=== PATIENT | female | born 1935 | race Caucasian/White ===

== ENCOUNTER 2018-03-02 13:18 | Inpatient (IN) ==
--- NOTE | 2018-03-01 21:25 | Discharge Summary ---
<Kenny Sousa - Last Filed: 03/02/18 13:58> Orders not resulted at time of discharge: Pending orders 03/02/18 00:01 XR hip complete RT [XR] Routine H/H [Hemoglobin and Hematocrit] [HEME] Routine Date of Encounter: 03/02/18 - Discharge Diagnosis (1) Obesity (BMI 30.0-34.9) Priority: Secondary Status: Chronic (2) Infection of prosthetic total hip joint Priority: Primary Status: Acute Qualifiers: Encounter type: subsequent encounter Qualified Code(s): T84.59XD - Infection and inflammatory reaction due to other internal joint prosthesis, subsequent encounter; Z96.649 - Presence of unspecified artificial hip joint (3) Nonhealing surgical wound Priority: Primary Status: Acute Qualifiers: Encounter type: subsequent encounter Qualified Code(s): T81.89XD - Other complications of procedures, not elsewhere classified, subsequent encounter (4) Status post revision of total hip replacement Priority: Primary Status: Acute (5) DMII (diabetes mellitus, type 2) Priority: Secondary Status: Chronic Qualifiers: Diabetes mellitus care home insulin use: unspecified terminal clerk insulin use status Diabetes mellitus complication status: with unspecified complications Qualified Code(s): E11.8 - Type 2 diabetes mellitus with unspecified complications (6) HTN (hypertension) Priority: Secondary Status: Chronic Qualifiers: Hypertension type: essential hypertension Qualified Code(s): I10 - Essential (primary) hypertension (7) History of CVA (cerebrovascular accident) Priority: Secondary Status: Chronic - Hospital Course Hospital course: Ms. Cartagena is a 82 year old female - Time Spent with Patient Total time spent providing and/or coordinating discharge services: - Discharge Medications Prescriptions: Vancomycin [Vancocin] 1,000 mg IV Q12HR 42 Days #84 vial Home Medications: Bran/Gum/Fib/Shaneka/Psyl/Kelp/Pec [Fiber 6 Tablet] 1,000 mg PO DAILY 09/15/17 [ History] Calcium Carbonate/Vitamin D3 [Calcium 600 + Vit D Tablet] 1 tab PO BID 09/15/17 [History] Clopidogrel [Plavix] 75 mg PO DAILY 09/15/17 [History] Ferrous Sulfate [Iron] 325 mg PO SUTH 09/15/17 [History] Lisinopril [Zestril] 20 mg PO BID 09/15/17 [History] Multivitamin [One Daily Multivitamin] 1 tab PO DAILY 09/15/17 [History] Rosuvastatin [Crestor] 20 mg PO HS 09/15/17 [History] metFORMIN [Glucophage] 500 mg PO BIDWM 09/15/17 [History] Aspirin Enteric Coated [Aspirin EC] 325 mg PO BID #20 tablet. 03/01/18 [Rx] OxyCODONE Immed Rel [Roxicodone 5 MG] 5 mg PO Q6HR PRN 7 Days #28 tablet [Rx] Acetaminophen [Tylenol] 650 mg PO Q6HR PRN 03/02/18 [History] Naproxen Sodium [Aleve] 220 mg PO BID PRN 03/02/18 [History] Vancomycin [Vancocin] 1,000 mg IV Q12HR 42 Days #84 vial 03/05/18 [Rx] Allergies/Adverse Reactions: 3 Allergy/AdvReac Type Severity Reaction Status Date / Time No Known Allergies Allergy Verified 03/02/18 14:03 Primary care physician: Ruiz Weiss DO Labs on day of discharge: Labs from last 24 hours 03/02/18 13:36 POC Glucose 104 H - Patient Status Disposition: Transfer Inpatient Rehab Fac Condition: Good - Discharge Instructions Instructions: Total Hip Replacement (DC) Follow Up With: Ruiz Weiss DO [Primary Care Provider] - <Kiesha Bolton L - Last Filed: 03/06/18 10:31> Date of Encounter: 03/06/18 Time of Encounter: 15:53 - Discharge Diagnosis (1) Status post revision of total hip replacement Priority: Primary Status: Acute (2) Infection of prosthetic total hip joint Priority: Primary Status: Acute Qualifiers: Encounter type: subsequent encounter Qualified Code(s): T84.59XD - Infection and inflammatory reaction due to other internal joint prosthesis, subsequent encounter; Z96.649 - Presence of unspecified artificial hip joint (3) DMII (diabetes mellitus, type 2) Priority: Secondary Status: Chronic Qualifiers: Diabetes mellitus care home insulin use: unspecified terminal clerk insulin use status Diabetes mellitus complication status: with unspecified complications Qualified Code(s): E11.8 - Type 2 diabetes mellitus with unspecified complications (4) HTN (hypertension) Priority: Secondary Status: Chronic Qualifiers: Hypertension type: essential hypertension Qualified Code(s): I10 - Essential (primary) hypertension (5) History of CVA (cerebrovascular accident) Priority: Secondary Status: Chronic (6) Obesity Priority: Secondary Status: Chronic Qualifiers: Obesity type: due to excess calories Obesity classification: adult class 1 (BMI 30 - 34.9) Serious obesity comorbidity presence: without serious comorbidity Body mass index: BMI 30.0-30.9 Qualified Code(s): E66.09 - Other obesity due to excess calories; Z68.30 - Body mass index (BMI) 30.0-30.9, adult (7) Acute blood loss anemia Priority: Primary Status: Acute Comments: Patient transfused 3 units of blood while in hospital (8) Staph aureus infection Priority: Primary Status: Acute Comments: Cultures: +2 strain staph aureus, pansensitive. Patient has failed mulltiple oral antibiotics, plan to continue IV Vancomycin 4-6 weeks. - Hospital Course Hospital course: Ms. Cartagena is a 82 year old female, status post Left Hip Revision THR, with I& D. 03/02 Culture from 01/25 - Staph Aureus - pansensitive. 03/02 Cultures: Sensitivity: Pansensitive (patient has failed multiple oral antibiotics) ORGANISM 1: Staphylococcus aureus Scant (Growth of 1-5 colonies) ORGANISM 2: Staph Aureus 1+ (Growth in 1st quadrant only) Will 4-6 weeks of required long-term antibiotics* PICC line placed 03/05. Knee immobizer removed on 03/04. Drain placed on 03/02 and pulled on 03/05 Patient had acute blood loss anemia, received a total of 3 units of blood. Patient seen at bedside, without complaints. A&O x 3 Afebrile, vital signs stable. Vital Signs Temp Pulse Resp BP Pulse Ox 03/06/18 07:30 98.3 F 94 18 134/74 98 03/06/18 03:35 98 F 94 16 132/69 99 03/05/18 20:41 98.3 F 99 16 120/67 99 03/05/18 19:36 98.4 F 103 16 119/66 98 03/05/18 17:00 99.0 F 97 16 114/74 99 03/05/18 16:31 98.4 F 96 15 118/73 98 03/05/18 16:16 98.7 F 68 16 127/76 96 03/05/18 11:10 98.0 F 98 16 114/66 99 Intake and Output 03/05/18 03/06/18 03/06/18 23:59 07:59 15:59 Intake Total 535 / 535 360 / 360 Output Total 400 / 400 1900 / 1900 Balance 135 / 135 -1900 / -1900 360 / 360 Intake: Oral 240 / 240 360 / 360 Blood Product 295 / 295 Rbcs Leuko Poor As-3 Ph Unit 295 / 295 [id number] Output: Urine 400 / 400 1900 / 1900 Other: Meal Dinner Breakfast Percent of Meal Consumed 50% 95% Weight 79.01 kg Blood Glucose* 110 135 Patient Weight 03/06/18 23:59 Weight 79.01 kg Labs reviewed. H/H - stable, asymptomatic Short CBC 03/06/18 Range/Units 03:15 Hgb 9.9 L D (11.5-15.4) g/dL Hct 31.0 L (35.3-44.9) % Pain control: adequate Participating in PT. All questions and concerns addressed. Educated on use of incentive spirometer. Encouraged ambulation and proper hydration. Patient educated on post-operative restrictions and post-operative care. Assessment and plan: Continue with postoperative care Discharge plan: ECF today IV Antibiotic: Vancomycin 1 gram q 12 with pharmacy to dose x 4-6 weeks. Daily PICC line care needed. Time spent discussing smoking cessation with patient: 3 to 10 minutes - Time Spent with Patient Total time spent providing and/or coordinating discharge services: Date of admission: 03/04/18 Primary care physician: Ruiz Weiss DO Discharging clinician: Kiesha Bolton Anticipated date of discharge: 03/06/18 - Patient Status Functional capacity at discharge: uses cane/walker Overall status at discharge: patient is progressing back to baseline - Diet and Activity Activity: as per physical therapy
--- NOTE | 2018-03-01 21:28 | Physician Discharge Referral ---
<LuisDalila hughesKiesha L - Last Filed: 03/01/18 21:27> Home Health/Hosp Referral Info Transfer to: Home Health Provider in Charge Post Discharge: PCP - Diagnosis (1) Status post revision of total hip replacement Priority: Primary Status: Acute (2) Infection of prosthetic total hip joint Priority: Primary Status: Acute (3) DMII (diabetes mellitus, type 2) Status: Chronic (4) HTN (hypertension) Status: Chronic (5) History of CVA (cerebrovascular accident) Status: Chronic (6) Obesity Status: Chronic - Respiratory Orders None Smoking Cessation: Smoking cessation has been advised. For more information, call the [place] Tobacco Quit Line at 8-259-TVID-NOW. - Diet/Nutrition Diet/Nutrition Orders: Regular - Activity Activity Orders: Up ad gennaro, Ambulate, Walker - Services Needed Following services are medically necessary services: Nursing, Home Health Aide, Physical Therapy, Occupational Therapy Other Treatments: Opsite dressing, leave intact until first post-operative visit. If dressing becomes >50% saturated, contact office, remove dressing and place appropriate dressing in its place. Do not allow for dressing to get wet. Zipline/Sergio in place, plan to remove at post-operative day #14-16. Total Joint Precautions x 6 weeks Apply cold therapy wrap 3-6x/day for 20 minutes at a time. Encourage ambulation throughout the day Use Incentive spirometer 10x/hour. Elevate affected extremity above heart as tolerated. Brace: Wear hip abductor brace at night x 6 weeks.~ - Transfer Medications Prescriptions: OxyCODONE Immed Rel [Roxicodone 5 MG] 5 mg PO Q6HR PRN 7 Days #28 tablet PRN Reason: Severe Pain Aspirin Enteric Coated [Aspirin EC] 325 mg PO BID #20 tablet.dr Home Medications: Bran/Gum/Fib/Shaneka/Psyl/Kelp/Pec [Fiber 6 Tablet] 1,000 mg PO DAILY 09/15/17 [ History] Calcium Carbonate/Vitamin D3 [Calcium 600 + Vit D Tablet] 1 tab PO BID 09/15/17 [History] Clopidogrel [Plavix] 75 mg PO DAILY 09/15/17 [History] Ferrous Sulfate [Iron] 325 mg PO SUTH 09/15/17 [History] Lisinopril [Zestril] 20 mg PO BID 09/15/17 [History] Multivitamin [One Daily Multivitamin] 1 tab PO DAILY 09/15/17 [History] Rosuvastatin [Crestor] 20 mg PO HS 09/15/17 [History] metFORMIN [Glucophage] 500 mg PO BIDWM 09/15/17 [History] Aspirin Enteric Coated [Aspirin EC] 325 mg PO BID #20 tablet. 03/01/18 [Rx] OxyCODONE Immed Rel [Roxicodone 5 MG] 5 mg PO Q6HR PRN 7 Days #28 tablet [Rx] Allergies/Adverse Reactions: 3 Allergy/AdvReac Type Severity Reaction Status Date / Time No Known Allergies Allergy Verified 09/15/17 12:28 Certification: Further, I certify that my clinical findings support that this patient is homebound (i.e. absences from home require considerable and taxing effort and are for medical reasons or christianity services or infrequently or short duration when for other reasons) because: Homebound Reason: Post-surgery restriction and or conditions limit ability to leave home Attestation: My signature below is to certify that this patient is under my care and that I, or nurse practitioner, or a physician's assistant men's lacrosse coach working with me, has a face-to -face encounter with this patient. <Kenny Sousa - Last Filed: 03/02/18 13:58> - Respiratory Orders Smoking Cessation: Smoking cessation has been advised. For more information, call the [place] Tobacco Quit Line at 4-472-NQKB-NOW. Certification: Further, I certify that my clinical findings support that this patient is homebound (i.e. absences from home require considerable and taxing effort and are for medical reasons or christianity services or infrequently or short duration when for other reasons) because: Attestation: My signature below is to certify that this patient is under my care and that I, or nurse practitioner, or a physician's assistant men's lacrosse coach working with me, has a face-to -face encounter with this patient.
--- NOTE | 2018-03-02 13:42 | Anesthesia Evaluation PreOp ---
Date of Encounter: 03/02/18 Time of Encounter: 13:40 - Past History Planned Operation: R total hip arthroplasty revision Cardiac History: HTN, Other (stress negatibe for ischemia EF 65%) Pulmonary History: Denies Any Significant HX AUTOMOTIVE SHOP FOREMAN History: CVA (mild generalized weakness), Other (carotid stenosis: tomas proximal ICA 40-59% stenosis) Other Medical History: Diabetes Type II Anesthesia History: No Prior Anesthetic Complications, Past Anesthesia (R THR, partial hysterectomy) Alcohol Use: none Drug use: none Medications and Allergies Bran/Gum/Fib/Shaneka/Psyl/Kelp/Pec [Fiber 6 Tablet] 1,000 mg PO DAILY 09/15/17 [ History] Calcium Carbonate/Vitamin D3 [Calcium 600 + Vit D Tablet] 1 tab PO BID 09/15/17 [History] Clopidogrel [Plavix] 75 mg PO DAILY 09/15/17 [History] Ferrous Sulfate [Iron] 325 mg PO SUTH 09/15/17 [History] Lisinopril [Zestril] 20 mg PO BID 09/15/17 [History] Multivitamin [One Daily Multivitamin] 1 tab PO DAILY 09/15/17 [History] Rosuvastatin [Crestor] 20 mg PO HS 09/15/17 [History] metFORMIN [Glucophage] 500 mg PO BIDWM 09/15/17 [History] Aspirin Enteric Coated [Aspirin EC] 325 mg PO BID #20 tablet. 03/01/18 [Rx] OxyCODONE Immed Rel [Roxicodone 5 MG] 5 mg PO Q6HR PRN 7 Days #28 tablet [Rx] 3 Allergy/AdvReac Type Severity Reaction Status Date / Time No Known Allergies Allergy Verified 09/15/17 12:28 - Meds/Allergy Pre-op Review Medications Reviewed: Yes Allergies Reviewed: Yes Beta Blockers on Current Med List: No Anesthesia Results - Labs Laboratory Tests 02/17/18 02/26/18 02/26/18 13:40 09:45 09:45 WBC 7.3 Hgb 12.6 Hct 40.3 Plt Count 349 PT 11.5 INR 1.0 APTT 35.3 Sodium Potassium Chloride Carbon Dioxide BUN Creatinine POC Creatinine 0.80 02/26/18 09:45 WBC Hgb Hct Plt Count PT INR APTT Sodium 138 Potassium 4.1 Chloride 105 Carbon Dioxide 25 BUN 17 Creatinine 0.78 POC Creatinine - Imaging EKG: report reviewed (SINUS RHYTHM WITH MARKED SINUS ARRHYTHMIA INFERIOR MYOCARDIAL INFARCTION, PROBABLY OLD Electronically Signed On 09-14-2017 8:25:53 EDT by Prasanna Jama) Anesthesia Exam O2 Sat Height 1.6 m Height 1.6 m Height 1.6 m Weight 77.564 kg Weight 77.564 kg Weight 77.564 kg O2 Sat by Pulse Oximetry 96 Vital Signs Temp Pulse Resp BP Pulse Ox 98.0 F 108 18 144/85 96 03/02/18 13:38 03/02/18 13:38 03/02/18 13:38 03/02/18 13:38 03/02/18 13:38 Blood glucose: 104 Weight: 77kg NPO (# of Hours): >8 - HEENT Pupil (Motor): Pupils equal, EOMI Mallampati: II Teeth: Edentulous Oral Opening: Greater than 3 - AUTOMOTIVE SHOP FOREMAN LOC: Oriented AUTOMOTIVE SHOP [employer]EMAN Motor: Normal RUE, Normal LUE, Normal RLE, Normal LLE, Normal Face AUTOMOTIVE SHOP FOREMAN Sensory: Deficit: RUE, LUE, RLE, LLE, Face - Cardiac Rhythm: Regular - Pulmonary Breath Sounds: bilateral Clear Respiratory Effort: Symmetrical Anesthesia Assess/Plan ASA Score: 3 Modified Marion Scale for Level of Consciousness: Cooperative, oriented, and tranquil Anesthetic Plan: General, Regional (pt declines spinal) Monitoring Plan: Standard Monitors Recovery Plan: PACU
[2018-03-02] MEDS: Ringers Solution, Lactated 1,000 ML IVC SCH ×4 (13:53→21:23)
[2018-03-02] MEDS ORDERED: Acetaminophen IV 1,000 MG/100 ML INFUS..BTL ONE (13:55)
--- NOTE | 2018-03-02 13:58 | History & Physical Report ---
Date of Encounter: 03/02/18 Time of Encounter: 13:58 24 Hour HP Update - Instructions Instructions: If the History and Physical is less than 30 days old and was completed prior to A.M. admission and or procedure and has NOT been updated on calendar day of procedure please complete this update prior to performing procedure. - Update Patient reports changes in Medical Condition: No Changes in examination, assessment, or condition: No Changes in Medication: No Preop tests/diagnostics Reviewed: Yes Surgery Remains Indicated: Yes Consent for Planned Operative Procedure(s) Verified: Yes - Pre-Operative Checklist Preoperative Checklist Indicated: No Prophylactic Antibiotic Ordered: Yes Is VTE Prophylaxis Indicated?: Yes
[2018-03-02] MEDS ORDERED: *HR* Midazolam HCl 2 MG/2 ML VIAL ONE (14:32)
[2018-03-02] MEDS ORDERED: *HR* FentaNYL (PF) 100 MCG/2 ML VIAL ONE ×2 (14:32→16:29)
[2018-03-02] MEDS ORDERED: Lidocaine -MPF 2% 2 ML VIAL ONE (14:32)
[2018-03-02] MEDS ORDERED: *HR* Succinylcholine 200 MG/10 ML VIAL IVP ONE (14:32)
[2018-03-02] MEDS ORDERED: *HR* Propofol 200 MG/20 ML VIAL IVP ONE (14:32)
[2018-03-02] MEDS ORDERED: Ethanol\\Acetic Acid\\Na Ace\\Ben 1,000 ML IRRIG.SOLN IR ONE ×2 (14:37→15:18)
[2018-03-02] MEDS ORDERED: *HR* Promethazine 25 MG/ML VIAL IVP PRN (15:28)
[2018-03-02] MEDS ORDERED: Dexamethasone 4 MG/ML VIAL ONE (16:22)
[2018-03-02] MEDS ORDERED: Ondansetron 4 MG/2 ML VIAL ONE (16:22)
[2018-03-02] MEDS ORDERED: *HR* PHENYLEPHRINE 1,000 MCG/10 ML SYRINGE IVP ONE ×2 (16:22→18:00)
[2018-03-02] MEDS ORDERED: Lidocaine -MPF 4% 5 ML AMPUL ONE (17:13)
--- NOTE | 2018-03-02 17:14 | Orthopedic Operative Note ---
Date of procedure: 03/02/18 Pre-op diagnosis: Infected left total hip Post-op diagnosis: same Procedure: Procedure: Right Revision femur of Total Hip Replacment irrigation debridement Estimated blood loss: 800 cc Hardware: Metal and polyethylene replacement. Rocco, sabianism modular, 14 x 195 mm stem, 25+0 cone body, 36+5 metal head. JAIDEN drain Procedural Notes: Infected right total hip. Operative procedure: The patient was brought to the operating room and placed on the operating room table. After general anesthesia was administered the patient was placed in the lateral decubitus position with the operative leg up. All pressure points were padded appropriately and the head was stabilized in the neutral position. The operative extremity was prepped and draped in the sterile surgical fashion patient received IV antibiotic prior to skin incision. Patient had a previous anterior approach, had an open draining sinus at the distal portion of this incision. A standard posterior approach is made to the operative hip and elliptical incision was made around the draining sinus area which ended at the end of the incision. The incision was made through the skin and subcutaneous tissue hemostasis was obtained with Bovie cautery. Using careful sharp dissection the fascia was identified and incised the external rotators were identified and released off the greater trochanter area the capsule was teed open. Fluid was sent for culture at this time. Hip was brought into internal rotation. End of the hip was dislocated. Soft tissue was removed from around the proximal femur. Osteotomes were used to disrupt the proximal portion between the femoral component and the patients proximal femur. The femoral component was well fixed. The vastus lateralis fascia was split the muscle was elevated up a small window in the bone was made to help extract the femoral component. This was done without significant osteotomy. Attention was then turned towards the acetabulum. Soft tissue was removed around the acetabulum. Close examination of the acetabulum revealed no posterior wall within the majority of the component. The component was well fixed. Based on the patient's age, 82 and bone quality the concern was that removal of the acetabular component with significantly compromise the little bone that was left and possibly not have enough bone for fixation of an acetabulum. Decision at this point was made to retain the acetabular component. The acetabulum was then irrigated with Bactisure, an antibacterial solution. Attention was then turned towards the femoral component. The femur was reamed up to size 14 x 1 95. Position of the reamer was confirmed to be within the femoral canal with x-ray in the AP and lateral planes. This was done intraoperative. The femoral stem was then seated. Trial reduction with a 25+0 cone body and a 36 0 head once again showed x-rays with the hip stem to be within bone. Trial reduction found the hip to be most stable with the +5 femoral head. The real cone body was seated in 20 degrees of anteversion and the +5 head. Hip was reduced. The hip had excellent stability with forward flexion to 90 degrees adduction of 30 degrees and internal rotation of 60 degrees. The hip had no shuck. The hips was irrigated again with the antibacterial solution, and then sat for 1 minute with a second antibacterial solution.. It was irrigated out with 2 L of pulse irrigation. The PA close the hip over a JAIDEN drain. Fascia was closed with a running #2 PDS suture. The deep tissue was irrigated and closed deep with #1 PDS suture superficially with 0 PDS suture and skin was closed with Dermabond and skin phoebe. The patient was placed in a sterile dressing and abduction pillow. The patient was extubated and transferred to the recovery room in stable condition. Anesthesia: DENIS Surgeon: Kenny Sousa Was there an curriculum assistant present: No Estimated blood loss (cc): 800 Condition: stable Disposition: PACU
[2018-03-02] MEDS ORDERED: *HR* Morphine 10 MG/ML VIAL ONE (17:16)
[2018-03-02] MEDS ORDERED: *HR* Enoxaparin 30 MG/0.3 ML SYRINGE SQ SCH (18:00)
[2018-03-02 18:23] LABS: Hematocrit 29.6 % (35.3-44.9)
[2018-03-02] MEDS ORDERED: *HR* Vasopressin 20 UNIT/ML VIAL ONE (18:25)
[2018-03-02 18:26] LABS: Hemoglobin 9.3 g/dL (11.5-15.4)
[2018-03-02] MEDS ORDERED: Albumin Human 5% 25.0 GM/500 ML VIAL ONE (18:29)
[2018-03-02] MEDS ORDERED: Ketorolac 15 MG/ML VIAL ONE (18:34)
[2018-03-02] MEDS: *HR* Morphine 2 MG/ML SYRINGE IVP PRN ×2 (18:38→18:57)
--- NOTE | 2018-03-02 18:59 | Anesthesia Evaluation Post Op ---
Date of Encounter: 03/02/18 Time of Encounter: 19:00 - Vital Signs Vital Signs: Selected Entries 03/02/18 18:46 Temperature 97.6 F Pulse Rate 87 Respiratory Rate 16 Blood Pressure 125/55 O2 Sat by Pulse Oximetry 100 - Lungs Lungs: Clear Ascult./Percussion - Airway Airway: Non-obstructed - Cardiovascular Regular Rate - Mental Status Mental Status: Alert & Oriented, Answers Appropriately - Nausea Vomiting Nausea Vomiting: Not Present - Hydration Hydration: NPO - Discharge PostOp Status: Transfer Patient to floor
[2018-03-02] MEDS ORDERED: traMADol 50 MG TABLET PO PRN (19:49)
[2018-03-02] MEDS ORDERED: Dextrose Gel 15 GM/37.5 ML TUBE PO PRN ×2 (19:49)
[2018-03-02] MEDS ORDERED: *HR* Dextrose 50 % in Water (Syg) 50 ML SYRINGE IVP PRN (19:49)
[2018-03-02] MEDS ORDERED: D5% in Water 1,000 ML IVC PRN (19:49)
[2018-03-02] MEDS ORDERED: Ondansetron 4 MG/2 ML VIAL IVP PRN (19:49)
[2018-03-02] MEDS ORDERED: *HR* OxyCODONE Immed Rel 5 MG TABLET PO PRN (19:49)
[2018-03-02] MEDS ORDERED: MOM Conc 10 ML UD.LIQ PO PRN (19:49)
[2018-03-02] MEDS ORDERED: Sennosides 8.6 MG TABLET PO PRN (19:49)
[2018-03-02] MEDS ORDERED: Temazepam 15 MG CAPSULE PO PRN (19:49)
[2018-03-02] MEDS ORDERED: Naloxone 0.4 MG/ML INJ IVP PRN (19:49)
[2018-03-02] MEDS: Calcium 600 + Vit D PO SCH (21:19)
[2018-03-02] MEDS: Lisinopril 20 MG TABLET PO SCH (21:20)
[2018-03-02] MEDS: Insulin LISPRO 300 UNITS/3 ML VIAL SQ SCH ×2 (21:21→21:23)
[2018-03-02] MEDS: *HR* Metformin 500 MG TABLET PO SCH (21:39)
[2018-03-02] MEDS: Ascorbic Acid 500 MG TABLET PO SCH (21:39)
[2018-03-03 01:17] LABS: Hematocrit 23.4 % (35.3-44.9); Hemoglobin 7.2 g/dL (11.5-15.4)
[2018-03-03 01:33] LABS: BUN/Creatinine Ratio 33 (6-26); Blood Urea Nitrogen 26 mg/dL (8-23); Calcium 8.6 mg/dL (8.6-10.3); Carbon Dioxide 23 mEq/L (23-29); Chloride 106 mEq/L (98-107); Glucose 163 mg/dL (70-105); Osmolality,Calculated 290 (280-300); Potassium 4.4 mEq/L (3.5-5.1); Sodium 136 mEq/L (136-145); eGFR For Non-African Americans > 60 (> 60)
[2018-03-03] MEDS ORDERED: Vancomycin 1,000 MG VIAL IVPB SCH (02:00)
[2018-03-03] MEDS ORDERED: Furosemide 20 MG/2 ML VIAL IVP ONE (06:12)
[2018-03-03] MEDS ORDERED: 0.9 % Sodium Chloride 250 ML IVC SCH (06:15)
--- NOTE | 2018-03-03 06:18 | Orthopedics Progress Note ---
Date of Encounter: 03/03/18 Time of Encounter: 06:18 - Assessment and Plan (1) Obesity (BMI 30.0-34.9) Current Visit: Yes Status: Chronic (2) Infection of prosthetic total hip joint Current Visit: No Status: Acute Qualifiers: Encounter type: subsequent encounter Qualified Code(s): T84.59XD - Infection and inflammatory reaction due to other internal joint prosthesis, subsequent encounter; Z96.649 - Presence of unspecified artificial hip joint (3) Nonhealing surgical wound Current Visit: No Status: Acute Qualifiers: Encounter type: subsequent encounter Qualified Code(s): T81.89XD - Other complications of procedures, not elsewhere classified, subsequent encounter (4) Status post revision of total hip replacement Current Visit: No Status: Acute (5) DMII (diabetes mellitus, type 2) Current Visit: No Status: Chronic Qualifiers: Diabetes mellitus lobsterman insulin use: unspecified lobsterman insulin use status Diabetes mellitus complication status: with unspecified complications Qualified Code(s): E11.8 - Type 2 diabetes mellitus with unspecified complications (6) HTN (hypertension) Current Visit: No Status: Chronic Qualifiers: Hypertension type: essential hypertension Qualified Code(s): I10 - Essential (primary) hypertension (7) History of CVA (cerebrovascular accident) Current Visit: No Status: Chronic (8) Acute blood loss anemia Current Visit: Yes Status: Acute Subjective Interval history: Patient was seen this morning doing well without complaints. Afebrile vital signs stable. Operative extremity: Neurovascularly intact Dressing clean dry and intact Calves nontender Assessment and plan: Continue with postoperative care Hemoglobin 7.2 transfuse 2 units Objective Vital signs: Vital Signs Temp Pulse Resp BP Pulse Ox 03/03/18 04:17 98.0 F 76 18 95/59 97 03/02/18 22:45 97.9 F 79 16 111/76 98 03/02/18 21:45 98.3 F 62 110/62 98 03/02/18 20:45 98.2 F 89 16 132/86 96 03/02/18 20:10 97.9 F 97 16 111/66 100 03/02/18 19:46 97.8 F 94 16 120/76 100 03/02/18 19:28 90 16 105/53 100 03/02/18 19:16 97.5 F L 69 16 100/52 100 03/02/18 19:06 87 16 109/54 100 03/02/18 18:56 86 16 121/60 100 03/02/18 18:46 97.6 F 87 16 125/55 100 03/02/18 18:36 84 16 107/54 100 03/02/18 18:26 83 16 108/51 100 03/02/18 18:20 79 16 88/49 100 03/02/18 18:16 97.5 F L 82 16 82/51 98 03/02/18 18:06 81 16 101/51 97 03/02/18 17:59 82 16 95/53 97 03/02/18 17:49 74 16 110/60 100 03/02/18 17:44 97.1 F L 69 16 65/34 100 03/02/18 13:38 98.0 F 108 18 144/85 96 Intake and Output 03/02/18 03/02/18 03/03/18 15:59 23:59 07:59 Intake Total 1999 0 / 0 Output Total 1255 / 1255 0 / 0 Balance 745 / 745 0 / 0 Intake: IV Fluids 1999 Lactated Ringers 1,000 ML @ 25 2000 / 2000 mls/hr IVC .Q24H ANATOLY Rx#: [id number] Oral 0 / 0 0 / 0 Output: Urine 0 / 0 Estimated Blood Loss 800 / 800 Wound Drainage 455 / 455 Right Lateral Thigh 275 / 275 Other: # Voids 1 Weight 77.564 kg 74.6 kg Blood Glucose* 104 134 Patient Weight 03/03/18 23:59 Weight 74.6 kg - Labs CBC & BMP: 03/03/18 01:02 03/03/18 01:02 Labs: Abnormal lab results Hgb 7.2 g/dL (11.5-15.4) L D 03/03/18 01:02 Hct 23.4 % (35.3-44.9) L 03/03/18 01:02 BUN 26 mg/dL (8-23) H 03/03/18 01:02 BUN/Creatinine Ratio 33 (6-26) H 03/03/18 01:02 Glucose 163 mg/dL (70-105) H 03/03/18 01:02 POC Glucose 134 mg/dL (70-99) H 03/02/18 21:05 Consult Discharge Plan - Plan Referrals: Ruiz Weiss DO [Primary Care Provider] -
[2018-03-03] MEDS: *HR* Enoxaparin 30 MG/0.3 ML SYRINGE SQ SCH ×2 (06:22→18:10)
[2018-03-03] MEDS: *HR* Metformin 500 MG TABLET PO SCH ×2 (08:55→17:38)
[2018-03-03] MEDS: Ascorbic Acid 500 MG TABLET PO SCH ×2 (08:55→17:38)
[2018-03-03] MEDS: Insulin LISPRO 300 UNITS/3 ML VIAL SQ SCH ×4 (08:55→21:00)
[2018-03-03] MEDS: Lisinopril 20 MG TABLET PO SCH ×2 (08:55→20:58)
[2018-03-03] MEDS: Calcium 600 + Vit D PO SCH (08:55)
[2018-03-03] MEDS: Multivit/Ca/Min/Fe/FA 1 TAB TABLET PO SCH (08:55)
[2018-03-03] MEDS ORDERED: NON-FORMULARY MEDICATION 1 EACH EACH (Multivitamin [One Daily Multivitamin] 1 TAB) PO SCH (09:00)
--- NOTE | 2018-03-03 12:26 | Event Note ---
Date of Encounter: 03/03/18 Time of Encounter: 12:25 PCR - POD#1. Patient seen at bedside, without complaints. A&O x 3 Afebrile, vital signs stable. Vital Signs Temp Pulse Resp BP Pulse Ox 03/03/18 20:00 97.9 F 80 16 130/78 98 03/03/18 16:08 98.7 F 96 14 116/68 95 03/03/18 16:00 98.0 F 94 124/60 97 03/03/18 13:45 98.1 F 89 113/62 96 03/03/18 13:25 97.9 F 102 117/69 98 03/03/18 11:57 98.3 F 102 17 142/78 98 03/03/18 11:30 98.4 F 91 112/68 98 03/03/18 09:05 98.2 F 95 89/55 98 03/03/18 08:45 97.3 F L 98 85/53 97 03/03/18 07:43 97.7 F 81 17 93/57 99 03/03/18 04:17 98.0 F 76 18 95/59 97 Intake and Output 03/03/18 03/03/18 03/03/18 07:59 15:59 23:59 Intake Total 0 / 0 1045 / 1045 440 / 440 Output Total 200 / 200 175 / 175 660 / 660 Balance -200 / -200 870 / 870 -220 / -220 Intake: Oral 0 / 0 480 / 480 440 / 440 Blood Product 565 / 565 Rbcs Leuko Poor As-1 Unit 300 / 300 [id number] Rbcs Leuko Poor As-3 Ph Unit 265 / 265 [id number] Output: Urine 200 / 200 100 / 100 525 / 525 Wound Drainage 75 / 75 135 / 135 Right Lateral Thigh 75 / 75 135 / 135 Other: Meal Lunch Dinner Percent of Meal Consumed 100% 70% Weight 74.6 kg Blood Glucose* 149 132 119 Patient Weight 03/03/18 23:59 Weight 74.6 kg Labs reviewed. H/H - 03/03 - transfused 2 units. Abnormal lab results Hgb 7.2 g/dL (11.5-15.4) L D 03/03/18 01:02 Hct 23.4 % (35.3-44.9) L 03/03/18 01:02 BUN 26 mg/dL (8-23) H 03/03/18 01:02 BUN/Creatinine Ratio 33 (6-26) H 03/03/18 01:02 Glucose 163 mg/dL (70-105) H 03/03/18 01:02 POC Glucose 132 mg/dL (70-99) H 03/03/18 12:01 Pain control: adequate Participating in PT. All questions and concerns addressed. Educated on use of incentive spirometer. Encouraged ambulation and proper hydration. Patient educated on post-operative restrictions and post-operative care. Assessment and plan: Continue with postoperative care Discharge plan: Home or ECF tomorrow* Awaiting culture results No knee ROM Drain in place. Dressings changed, opsite placed. Sergio and ziplien intact.
[2018-03-03] MEDS: Acetaminophen 325 MG TABLET PO PRN ×2 (13:05→23:47)
[2018-03-04] MEDS: Calcium 600 + Vit D PO SCH ×3 (00:58→22:26)
[2018-03-04 02:24] LABS: Hematocrit 27.7 % (35.3-44.9)
[2018-03-04 02:49] LABS: BUN/Creatinine Ratio 29 (6-26); Blood Urea Nitrogen 20 mg/dL (8-23); Calcium 8.8 mg/dL (8.6-10.3); Carbon Dioxide 23 mEq/L (23-29); Chloride 106 mEq/L (98-107); Glucose 147 mg/dL (70-105); Osmolality,Calculated 285 (280-300); Potassium 4.1 mEq/L (3.5-5.1); Sodium 135 mEq/L (136-145); eGFR For Non-African Americans > 60 (> 60)
[2018-03-04] MEDS: *HR* Enoxaparin 30 MG/0.3 ML SYRINGE SQ SCH ×2 (05:28→17:22)
[2018-03-04] MEDS: *HR* OxyCODONE/APAP 5/325 TABLET PO PRN ×2 (05:28→14:00)
--- NOTE | 2018-03-04 07:48 | Orthopedics Progress Note ---
Date of Encounter: 03/04/18 Time of Encounter: 07:48 - Assessment and Plan (1) Obesity (BMI 30.0-34.9) Current Visit: Yes Status: Chronic (2) Infection of prosthetic total hip joint Current Visit: No Status: Acute Qualifiers: Encounter type: subsequent encounter Qualified Code(s): T84.59XD - Infection and inflammatory reaction due to other internal joint prosthesis, subsequent encounter; Z96.649 - Presence of unspecified artificial hip joint (3) Nonhealing surgical wound Current Visit: No Status: Acute Qualifiers: Encounter type: subsequent encounter Qualified Code(s): T81.89XD - Other complications of procedures, not elsewhere classified, subsequent encounter (4) Status post revision of total hip replacement Current Visit: No Status: Acute (5) DMII (diabetes mellitus, type 2) Current Visit: No Status: Chronic Qualifiers: Diabetes mellitus watermaster insulin use: unspecified watermaster insulin use status Diabetes mellitus complication status: with unspecified complications Qualified Code(s): E11.8 - Type 2 diabetes mellitus with unspecified complications (6) HTN (hypertension) Current Visit: No Status: Chronic Qualifiers: Hypertension type: essential hypertension Qualified Code(s): I10 - Essential (primary) hypertension (7) History of CVA (cerebrovascular accident) Current Visit: No Status: Chronic (8) Acute blood loss anemia Current Visit: Yes Status: Acute Subjective Interval history: Patient was seen this morning doing well without complaints. Afebrile vital signs stable. Operative extremity: Neurovascularly intact Dressing clean dry and intact Calves nontender Assessment and plan: Continue with postoperative care Hemoglobin 9.0 DC knee immobilizer DC drain in a.m. tomorrow Objective Vital signs: Vital Signs Temp Pulse Resp BP Pulse Ox 03/04/18 06:44 98 F 87 16 138/67 96 03/04/18 03:00 98.1 F 93 16 135/73 97 03/03/18 23:35 98 F 82 17 115/69 97 03/03/18 20:00 97.9 F 80 16 130/78 98 03/03/18 16:08 98.7 F 96 14 116/68 95 03/03/18 16:00 98.0 F 94 124/60 97 03/03/18 13:45 98.1 F 89 113/62 96 03/03/18 13:25 97.9 F 102 117/69 98 03/03/18 11:57 98.3 F 102 17 142/78 98 03/03/18 11:30 98.4 F 91 112/68 98 03/03/18 09:05 98.2 F 95 89/55 98 03/03/18 08:45 97.3 F L 98 85/53 97 Intake and Output 03/03/18 03/03/18 03/04/18 15:59 23:59 07:59 Intake Total 1045 / 1045 440 / 440 0 / 0 Output Total 175 / 175 980 / 980 495 / 495 Balance 870 / 870 -540 / -540 -495 / -495 Intake: Oral 480 / 480 440 / 440 0 / 0 Blood Product 565 / 565 Rbcs Leuko Poor As-1 Unit 300 / 300 [id number] Rbcs Leuko Poor As-3 Ph Unit 265 / 265 [id number] Output: Urine 100 / 100 825 / 825 450 / 450 Wound Drainage 75 / 75 155 / 155 45 / 45 Right Lateral Thigh 75 / 75 155 / 155 45 / 45 Other: Meal Lunch Dinner Percent of Meal Consumed 100% 70% # Voids 1 Weight 78.5 kg Blood Glucose* 132 119 141 Patient Weight 03/04/18 23:59 Weight 78.5 kg - Labs CBC & BMP: 03/04/18 01:38 03/04/18 01:38 Labs: Abnormal lab results Hgb 9.0 g/dL (11.5-15.4) L D 03/04/18 01:38 Hct 27.7 % (35.3-44.9) L 03/04/18 01:38 Sodium 135 mEq/L (136-145) L 03/04/18 01:38 BUN/Creatinine Ratio 29 (6-26) H 03/04/18 01:38 Glucose 147 mg/dL (70-105) H 03/04/18 01:38 POC Glucose 119 mg/dL (70-99) H 03/03/18 20:05 Consult Discharge Plan - Plan Referrals: Ruiz Weiss DO [Primary Care Provider] -
[2018-03-04] MEDS: Multivit/Ca/Min/Fe/FA 1 TAB TABLET PO SCH (08:20)
[2018-03-04] MEDS: Ascorbic Acid 500 MG TABLET PO SCH ×2 (08:20→17:22)
[2018-03-04] MEDS: Insulin LISPRO 300 UNITS/3 ML VIAL SQ SCH ×4 (08:21→22:26)
[2018-03-04] MEDS: *HR* Metformin 500 MG TABLET PO SCH ×2 (08:21→17:22)
[2018-03-04] MEDS: Lisinopril 20 MG TABLET PO SCH ×2 (08:21→22:25)
--- NOTE | 2018-03-04 15:24 | Event Note ---
Date of Encounter: 03/04/18 Time of Encounter: 15:22 POD#2 - Left Hip Revision 03/02 Transfused on 03/03 2 units . H/h stable Awaiting cultures to establish IV antibiotic need x 6 weeks Pain control: adequate Participating in PT. All questions and concerns addressed. Educated on use of incentive spirometer. Encouraged ambulation and proper hydration. Patient educated on post-operative restrictions and post-operative care. Assessment and plan: Continue with postoperative care Discharge plan: Home with home health, Awaiting culture results *Allowed for knee motion per this AM. Drain in place. Dressings changed, opsite placed. Sergio and ziplien intact. Plan to do IV antibiotics x 6 weeks pending culture results.
[2018-03-04] MEDS: Ringers Solution, Lactated 1,000 ML IVC SCH (20:32)
[2018-03-05 01:14] LABS: Hematocrit 25.7 % (35.3-44.9); Hemoglobin 8.3 g/dL (11.5-15.4); Immature Granulocytes % 0.2 % (0-4); Mean Corpuscular HGB Conc 32.3 g/dL (31.6-35.5); Mean Corpuscular Hemoglobin 27.5 pg (28.0-33.3); Mean Corpuscular Volume 85.1 fL (83.0-100.0); Platelet Count 215 K/mcL (140-400); Red Blood Count 3.02 M/mcL (3.82-4.97); Segmented Neutrophils % 69.7 %
[2018-03-05 01:15] LABS: Basophils % 0.3 %; Eosinophils # 0.1 K/mcL (0.0-0.6); Eosinophils % 0.7 %; Lymphocytes # 1.7 K/mcL (0.6-4.6); Monocytes # 0.9 K/mcL (0.0-1.3); Monocytes % 10.1 %; Neutrophils # 6.1 K/mcL (1.6-8.9)
[2018-03-05 01:34] LABS: BUN/Creatinine Ratio 23 (6-26); Blood Urea Nitrogen 15 mg/dL (8-23); Calcium 8.7 mg/dL (8.6-10.3); Carbon Dioxide 22 mEq/L (23-29); Chloride 103 mEq/L (98-107); Glucose 132 mg/dL (70-105); Osmolality,Calculated 277 (280-300); Potassium 3.9 mEq/L (3.5-5.1); Sodium 132 mEq/L (136-145); eGFR For Non-African Americans > 60 (> 60)
[2018-03-05] MEDS: *HR* Enoxaparin 30 MG/0.3 ML SYRINGE SQ SCH ×2 (06:21→17:09)
--- NOTE | 2018-03-05 07:41 | Orthopedics Progress Note ---
Date of Encounter: 03/05/18 Time of Encounter: 07:37 - Assessment and Plan (1) Status post revision of total hip replacement Current Visit: No Status: Acute (2) Infection of prosthetic total hip joint Current Visit: No Status: Acute Qualifiers: Encounter type: subsequent encounter Qualified Code(s): T84.59XD - Infection and inflammatory reaction due to other internal joint prosthesis, subsequent encounter; Z96.649 - Presence of unspecified artificial hip joint (3) DMII (diabetes mellitus, type 2) Current Visit: No Status: Chronic Qualifiers: Diabetes mellitus hammer heater insulin use: unspecified hammer heater insulin use status Diabetes mellitus complication status: with unspecified complications Qualified Code(s): E11.8 - Type 2 diabetes mellitus with unspecified complications (4) HTN (hypertension) Current Visit: No Status: Chronic Qualifiers: Hypertension type: essential hypertension Qualified Code(s): I10 - Essential (primary) hypertension (5) History of CVA (cerebrovascular accident) Current Visit: No Status: Chronic (6) Obesity Current Visit: No Status: Chronic Qualifiers: Obesity type: due to excess calories Obesity classification: adult class 1 (BMI 30 - 34.9) Serious obesity comorbidity presence: without serious comorbidity Body mass index: BMI 30.0-30.9 Qualified Code(s): E66.09 - Other obesity due to excess calories; Z68.30 - Body mass index (BMI) 30.0-30.9, adult Subjective Principal diagnosis: Left Hip Revision THR, I&D 03/02 Interval history: Patient was seen this morning doing well without complaints. Plan changed to ECF due to long-term antibiotic needs Afebrile, vital signs stable. Operative extremity: Neurovascularly intact Dressing clean dry and intact Calves nontender Assessment and plan: Continue with postoperative care Continue daily wound care Cultures: light growth - pre-anand P MCUWC ORGANISM 1: Staphylococcus aureus P Quantity Scant (Growth of 1-5 colonies) P Sensitivity is included in the final report. P P ORGANISM 2: Gram Positive Cocci P Quantity 1+ (Growth in 1st quadrant only) sensitivity pending as well until Friday Hemoglobin 8.3/25.7 - she was transfused 2 units on 03/03, we will tranfuse another unit today due to anticipated dc today or tomorrow. Per , DC knee immobilizer DC drain this AM. Discharge on Friday once sensitivity returns. Consult PICC team for picc line placement Continue IV Vancomycin. Objective Vital signs: Vital Signs Temp Pulse Resp BP Pulse Ox 03/05/18 04:25 98.5 F 96 16 114/70 94 03/04/18 23:43 98.3 F 95 16 116/72 96 03/04/18 22:34 100 03/04/18 19:36 98.6 F 99 16 114/59 100 03/04/18 14:01 97.9 F 87 16 130/84 96 03/04/18 09:53 98.3 F 92 16 129/76 95 Intake and Output 03/04/18 03/04/18 03/05/18 15:59 23:59 07:59 Intake Total 240 / 240 Output Total 475 / 475 750 / 750 50 / 50 Balance -235 / -235 -750 / -750 -50 / -50 Intake: Oral 240 / 240 Output: Urine 450 / 450 650 / 650 Wound Drainage 25 / 25 100 / 100 50 / 50 Right Lateral Thigh 25 / 25 100 / 100 50 / 50 Other: Meal Lunch Percent of Meal Consumed 80% Weight 78.5 kg Blood Glucose* 120 175 - Labs CBC & BMP: 03/05/18 00:42 03/05/18 00:42 Labs: Abnormal lab results RBC 3.02 M/mcL (3.82-4.97) L 03/05/18 00:42 Hgb 8.3 g/dL (11.5-15.4) L 03/05/18 00:42 Hct 25.7 % (35.3-44.9) L 03/05/18 00:42 MCH 27.5 pg (28.0-33.3) L 03/05/18 00:42 RDW 16.0 % (11.5-14.5) H 03/05/18 00:42 Sodium 132 mEq/L (136-145) L 03/05/18 00:42 Carbon Dioxide 22 mEq/L (23-29) L 03/05/18 00:42 Glucose 132 mg/dL (70-105) H 03/05/18 00:42 POC Glucose 175 mg/dL (70-99) H 03/04/18 20:16 Calculated Osmolality 277 (280-300) L 03/05/18 00:42 Consult Discharge Plan - Plan Referrals: Ruiz Weiss DO [Primary Care Provider] -
[2018-03-05] MEDS: Calcium 600 + Vit D PO SCH ×2 (08:00→21:38)
[2018-03-05] MEDS: Insulin LISPRO 300 UNITS/3 ML VIAL SQ SCH ×4 (08:00→21:38)
[2018-03-05] MEDS: *HR* Metformin 500 MG TABLET PO SCH ×2 (08:17→16:00)
[2018-03-05] MEDS: Lisinopril 20 MG TABLET PO SCH ×2 (08:17→21:36)
[2018-03-05] MEDS: Multivit/Ca/Min/Fe/FA 1 TAB TABLET PO SCH (08:18)
[2018-03-05] MEDS: Ascorbic Acid 500 MG TABLET PO SCH ×2 (08:18→16:00)
[2018-03-05] MEDS ORDERED: Lidocaine -MPF 1% 5 ML AMPUL INFILT ONE (15:16)
--- NOTE | 2018-03-05 16:01 | Physician Discharge Referral ---
ExtendedCare Referral Info Transfer To: [facility] Provider in Charge: Provider in Charge after Transfer: PCP Institutional Level of Care: Skilled - Diagnosis (1) Status post revision of total hip replacement Priority: Primary Status: Acute (2) Acute blood loss anemia Priority: Secondary Status: Acute (3) Staph aureus infection Priority: Primary Status: Acute (4) Infection of prosthetic total hip joint Priority: Primary Status: Acute (5) DMII (diabetes mellitus, type 2) Priority: Secondary Status: Chronic (6) HTN (hypertension) Priority: Secondary Status: Chronic (7) History of CVA (cerebrovascular accident) Priority: Secondary Status: Chronic (8) Obesity Priority: Secondary Status: Chronic Expected Duration of Placement: 6 weeks Prognosis: Good Aware of Diagnosis: Patient Aware of Prognosis: Patient - Transfer Medications Prescriptions: Vancomycin [Vancocin] 1,000 mg IV Q12HR 42 Days #84 vial Home Medications: Bran/Gum/Fib/Shaneka/Psyl/Kelp/Pec [Fiber 6 Tablet] 1,000 mg PO DAILY 09/15/17 [ History] Calcium Carbonate/Vitamin D3 [Calcium 600 + Vit D Tablet] 1 tab PO BID 09/15/17 [History] Clopidogrel [Plavix] 75 mg PO DAILY 09/15/17 [History] Ferrous Sulfate [Iron] 325 mg PO SUTH 09/15/17 [History] Lisinopril [Zestril] 20 mg PO BID 09/15/17 [History] Multivitamin [One Daily Multivitamin] 1 tab PO DAILY 09/15/17 [History] Rosuvastatin [Crestor] 20 mg PO HS 09/15/17 [History] metFORMIN [Glucophage] 500 mg PO BIDWM 09/15/17 [History] Aspirin Enteric Coated [Aspirin EC] 325 mg PO BID #20 tablet. 03/01/18 [Rx] OxyCODONE Immed Rel [Roxicodone 5 MG] 5 mg PO Q6HR PRN 7 Days #28 tablet [Rx] Acetaminophen [Tylenol] 650 mg PO Q6HR PRN 03/02/18 [History] Naproxen Sodium [Aleve] 220 mg PO BID PRN 03/02/18 [History] Vancomycin [Vancocin] 1,000 mg IV Q12HR 42 Days #84 vial 03/05/18 [Rx] Allergies/Adverse Reactions: 3 Allergy/AdvReac Type Severity Reaction Status Date / Time No Known Allergies Allergy Verified 03/02/18 14:03 - Respiratory Orders None Smoking Cessation: Smoking cessation has been advised. For more information, call the [employer] Tobacco Quit Line at 9-069-DHXX-NOW. - Lab Orders Lab Orders: CBC, Other (include drug levels w/frequency) (Weekly ESR, CRP - Vancomycin kinetics (pharm to dose)) - Mobility Orders Chair, Ambulate - Rehabiliation Orders Rehab Potential: Good Rehab Orders: ROM Exercises, Evaluation for Physical Therapy, Evaluation for Occupational Therapy Other: Opsite dressing and zipline, leave intact until first post-operative visit. If dressing becomes >50% saturated, contact office, remove dressing and place appropriate dressing in its place. 4x4 with Medipore tape applied to drain incision. Keep covered and cleansed daily. Monitor for signs of drainage. Do not allow for dressing to get wet. Zipline/[place] in place, plan to remove at post-operative day #14-16. Total Joint Precautions x 6 weeks Apply cold therapy wrap 3-6x/day for 20 minutes at a time. Encourage ambulation throughout the day Use Incentive spirometer 10x/hour. Elevate affected extremity above heart as tolerated. Brace: Wear hip abductor brace at night x 6 weeks.~ - Treatments Skin tear care topically daily PRN per policy List/Other: Ms. Cartagena is a 82 year old female, status post Left Hip Revision THR, with I& D. 03/02 Culture from 01/25 - Staph Aureus - pansensitive. 03/02 Cultures: Sensitivity: Pansensitive. ORGANISM 1: Staphylococcus aureus Scant (Growth of 1-5 colonies) ORGANISM 2: Gram Positive Cocci 1+ (Growth in 1st quadrant only) Will 4-6 weeks of required long-term antibiotics* PICC line placed 03/05. Knee immobizer removed on 03/04. Drain placed on 03/02 and pulled on 03/05 Patient had acute blood loss anemia, received a total of 3 units of blood. Patient seen at bedside, without complaints. A&O x 3 Afebrile, vital signs stable. Labs reviewed. H/H - stable, asymptomatic Pain control: adequate Participating in PT. All questions and concerns addressed. Educated on use of incentive spirometer. Encouraged ambulation and proper hydration. Patient educated on post-operative restrictions and post-operative care. Assessment and plan: Continue with postoperative care Discharge plan: ECF today IV Antibiotic: Vancomycin 1 gram q 12 with pharmacy to dose x 4-6 weeks. Daily PICC line care needed. - Diet Orders Regular CERTIFICATION: I certify that the transfer of the above named patient to an Extended Care Facility is necessary for the continuing treatment of the diagnosis listed. The above information is true and accurate reflection of patient's current condition. Confidential - Redisclosure prohibited without a patient's written consent.
[2018-03-06 03:28] LABS: Hemoglobin 9.9 g/dL (11.5-15.4)
[2018-03-06] MEDS: *HR* Enoxaparin 30 MG/0.3 ML SYRINGE SQ SCH (06:31)
[2018-03-06] MEDS: Insulin LISPRO 300 UNITS/3 ML VIAL SQ SCH ×2 (08:15→12:24)
[2018-03-06] MEDS: *HR* Metformin 500 MG TABLET PO SCH (08:52)
[2018-03-06] MEDS: Lisinopril 20 MG TABLET PO SCH (08:52)
[2018-03-06] MEDS: Calcium 600 + Vit D PO SCH (08:52)
[2018-03-06] MEDS: Ascorbic Acid 500 MG TABLET PO SCH (08:52)
[2018-03-06] MEDS: Multivit/Ca/Min/Fe/FA 1 TAB TABLET PO SCH (08:52)
[2018-03-06 11:22] VITALS: BP 108/68
[2018-03-06] MEDS ORDERED: Aminoglycoside Consult 1 EACH MC ONE (13:59)
== END 2018-03-06 14:00 | DRG 467 ==
LOC: SAMDAY 13:18 → 3NENU 19:39
PROVIDERS: ADMIT Orthopaedic Surgery; ATTEND Orthopaedic Surgery

== ENCOUNTER 2019-02-14 12:38 | Inpatient (IN) ==
[2019-02-14] MEDS ORDERED: Isovue-370 500 ML BOTTLE IVP ONE (12:55)
--- NOTE | 2019-02-14 12:55 | Emergency Department Note ---
Disposition Clinical Impression: Abscess, NASEEM (acute kidney injury) Disposition: Admitted As Inpatient Condition: Good Time of Disposition: 18:07 General Adult HPI - General Chief complaint: ED Extremity Problem,Nontraumatic Stated complaint: R Hip Pain / Infected Time Seen by Provider: 02/14/19 12:48 Source: patient Limitations: no limitations - History of Present Illness Pain Scale: 6 - Related Data Home Medications Medication Instructions Recorded Confirmed Bran/Gum/Fib/Shaneka/Psyl/Kelp/Pec 1,000 mg PO DAILY 09/15/17 03/06/18 [Fiber 6 Tablet] Calcium Carbonate/Vitamin D3 1 tab PO BID 09/15/17 03/06/18 [Calcium 600 + Vit D Tablet] Clopidogrel [Plavix] 75 mg PO DAILY 09/15/17 03/06/18 Lisinopril [Zestril] 20 mg PO BID 09/15/17 03/06/18 Multivitamin [One Daily 1 tab PO DAILY 09/15/17 03/06/18 Multivitamin] Rosuvastatin [Crestor] 20 mg PO HS 09/15/17 03/06/18 metFORMIN [Glucophage] 500 mg PO BIDWM 09/15/17 03/06/18 Acetaminophen [Tylenol] 650 mg PO Q6HR PRN 03/02/18 03/06/18 Previous Rx's Medication Instructions Recorded OxyCODONE Immed Rel [Roxicodone 5 5 mg PO Q6HR PRN 7 Days #28 tablet 03/01/18 MG] Ascorbic Acid [Vitamin C] 500 mg PO 0630 #30 tablet 04/17/18 Ferrous Sulfate 325 mg PO 0630 #30 tablet 04/17/18 Lactobacillus [Culturelle] 1 each PO BID #42 cap.sprink 04/17/18 cephALEXin [Keflex] 500 mg PO Q8H #63 capsule 04/17/18 Allergies Allergy/AdvReac Type Severity Reaction Status Date / Time No Known Allergies Allergy Verified 03/02/18 14:03 Past Medical History - Past Medical History Medical history: Reports: CVA, diabetes, hyperlipidemia, hypertension, osteoporosis, other Surgical history: Reports: cataract, hysterectomy, orthopedic, other, other Psychiatric history: Reports: no psych history - Social History Smoking Status: Never smoker Smokeless Tobacco Status: No Alcohol use: Reports: none Drug use: Reports: none Physical Exam - General Limitations: no limitations General appearance: alert, in no apparent distress Course Vital Signs Temperature 98.3 F 02/14/19 12:39 Pulse Rate 98 02/14/19 12:39 Respiratory Rate 20 02/14/19 12:39 Blood Pressure 156/75 02/14/19 12:39 O2 Sat by Pulse Oximetry 98 02/14/19 12:39 Temperature 98.3 F 02/14/19 12:39 Pulse Rate 98 02/14/19 12:39 Respiratory Rate 20 02/14/19 12:39 Blood Pressure 156/75 02/14/19 12:39 O2 Sat by Pulse Oximetry 98 02/14/19 12:39 Oxygen Delivery Oxygen Delivery Room Air Medical Decision Making - Lab Data Result diagrams: 02/14/19 12:55 02/14/19 12:55 Lab Results 02/14/19 02/14/19 02/14/19 Range/Units 12:55 12:55 12:55 WBC 9.4 (4.3-11.1) K/mcL RBC 4.49 (3.82-4.97) M/mcL Hgb 11.5 (11.5-15.4) g/dL Hct 37.8 (35.3-44.9) % MCV 84.2 (83.0-100.0) fL MCH 25.6 L (28.0-33.3) pg MCHC 30.4 L (31.6-35.5) g/dL RDW 17.4 H (11.5-14.5) % Plt Count 456 H (140-400) K/mcL MPV 8.9 L (9.4-12.4) fL Immature Gran % 0.3 (0-4) % Seg Neutrophils % 74.1 % Lymphocytes % 17.3 % Monocytes % 6.8 % Eosinophils % 1.0 % Basophils % 0.5 % Neutrophils # 7.0 (1.6-8.9) K/mcL Lymphocytes # 1.6 (0.6-4.6) K/mcL Monocytes # 0.6 (0.0-1.3) K/mcL Eosinophils # 0.1 (0.0-0.6) K/mcL Basophils # 0.1 (0.0-0.2) K/mcL PT 12.0 (9.4-12.1) Seconds INR 1.1 APTT 34.9 (26.0-36.0) Seconds Sodium 136 (136-145) mEq/L Potassium 5.1 (3.5-5.1) mEq/L Chloride 105 (98-107) mEq/L Carbon Dioxide 20 L (23-29) mEq/L BUN 24 H (8-23) mg/dL Creatinine 1.32 H (0.60-1.20) mg/dL Est GFR ( Amer) 47 L (> 60) Est GFR (Non-Af Amer) 39 L (> 60) BUN/Creatinine Ratio 18 (6-26) Glucose 106 H (70-105) mg/dL Calculated Osmolality 286 (280-300) Calcium 9.8 (8.6-10.3) mg/dL Attestation Statement - Attestation Attestation: I reviewed the residents documentation and agree with the residents assessment and plan of care. I have personally had face to face time with the patient. (Brief History, Brief Exam, and MDM) I personally supervised and was present for the batista/critical portions of the following procedures completed by the resident: (add procedures performed here). [id number] time provided Patient concerned about increased area of swelling and redness to her right hip 1 year after hip replacement. There does appear to be cellulitic area with a possible abscess. No active drainage.
--- NOTE | 2019-02-14 13:13 | Emergency Department Note ---
Disposition Clinical Impression: Abscess, NASEEM (acute kidney injury) Disposition: Admitted As Inpatient Condition: Good Forms: ED Satisfaction Letter Time of Disposition: 16:52 General Adult HPI - General Chief complaint: ED Extremity Problem,Nontraumatic Stated complaint: R Hip Pain / Infected Time Seen by Provider: 02/14/19 12:48 Source: patient Mode of arrival: ambulatory Limitations: no limitations Nursing Notes Reviewed: Yes Vital Signs Reviewed: Yes - History of Present Illness HPI Narrative: Patient is a 83-year-old female presents emergency department due to concern for possible hip infection on the right. Patient states that she has had a hip r eplacement approximately one year with Dr. Sousa. Patient states that yesterday she noticed a blister like area over the incision site. Patient states that she has not had a fever. Denies any nausea vomiting or diarrhea. Patient states that she has seen Dr. Sousa and is scheduled to have an ultrasound tomorrow with possible aspiration. Patient states that the area got larger and became more c oncerned. Patient states that she is having increased pain as well as redness overlying the incision site. Pain Scale: 6 - Related Data Home Medications Medication Instructions Recorded Confirmed Bran/Gum/Fib/Shaneka/Psyl/Kelp/Pec 1,000 mg PO DAILY 09/15/17 03/06/18 [Fiber 6 Tablet] Calcium Carbonate/Vitamin D3 1 tab PO BID 09/15/17 03/06/18 [Calcium 600 + Vit D Tablet] Clopidogrel [Plavix] 75 mg PO DAILY 09/15/17 03/06/18 Lisinopril [Zestril] 20 mg PO BID 09/15/17 03/06/18 Multivitamin [One Daily 1 tab PO DAILY 09/15/17 03/06/18 Multivitamin] Rosuvastatin [Crestor] 20 mg PO HS 09/15/17 03/06/18 metFORMIN [Glucophage] 500 mg PO BIDWM 09/15/17 03/06/18 Acetaminophen [Tylenol] 650 mg PO Q6HR PRN 03/02/18 03/06/18 Previous Rx's Medication Instructions Recorded OxyCODONE Immed Rel [Roxicodone 5 5 mg PO Q6HR PRN 7 Days #28 tablet 03/01/18 MG] Ascorbic Acid [Vitamin C] 500 mg PO 0630 #30 tablet 04/17/18 Ferrous Sulfate 325 mg PO 0630 #30 tablet 04/17/18 Lactobacillus [Culturelle] 1 each PO BID #42 cap.sprink 04/17/18 cephALEXin [Keflex] 500 mg PO Q8H #63 capsule 04/17/18 Allergies Allergy/AdvReac Type Severity Reaction Status Date / Time No Known Allergies Allergy Verified 03/02/18 14:03 All systems ED: reviewed and negative except as stated. Constitutional: Denies: fever Cardiovascular: Denies: chest pain Respiratory: Denies: dyspnea Gastrointestinal: Denies: abdominal pain, nausea, vomiting Genitourinary: Denies: urgency, dysuria, frequency Musculoskeletal: Reports: other (Right hip pain.) Integumentary: Reports: other (Fluctuant area over the right hip with overlying erythema.) Past Medical History - Past Medical History Medical history: Reports: CVA, diabetes, hyperlipidemia, hypertension, osteoporosis, other Surgical history: Reports: cataract, hysterectomy, orthopedic, other, other Psychiatric history: Reports: no psych history - Social History Smoking Status: Never smoker Smokeless Tobacco Status: No Alcohol use: Reports: none Drug use: Reports: none Physical Exam - General Limitations: no limitations General appearance: alert, in no apparent distress - Head Head exam: atraumatic, normocephalic - Eye Eye exam: Present: normal appearance, EOMI - Neck Neck exam: Present: normal inspection, full ROM, trachea midline - Respiratory Respiratory exam: Present: normal lung sounds bilaterally. Absent: respiratory distress, wheezes - Cardiovascular Cardiovascular exam: Present: regular rate, normal rhythm, normal heart sounds, +S1, +S2 - Abdominal Exam Abdominal exam: Present: soft, Non-Tender, normal bowel sounds - Neurological Exam Neurological exam: Present: alert, oriented X3 - Psychiatric Psychiatric exam: Present: normal affect, normal mood - Skin Skin exam: Present: warm, dry, intact, erythema, other (Patient has a fluctuant area over the right hip over a prior and incision site.) Course Vital Signs Temperature 98.3 F 02/14/19 12:39 Pulse Rate 98 02/14/19 12:39 Respiratory Rate 20 02/14/19 12:39 Blood Pressure 156/75 02/14/19 12:39 O2 Sat by Pulse Oximetry 98 02/14/19 12:39 Temperature 98.3 F 02/14/19 12:39 Pulse Rate 98 02/14/19 12:39 Respiratory Rate 20 02/14/19 12:39 Blood Pressure 156/75 02/14/19 12:39 O2 Sat by Pulse Oximetry 98 02/14/19 12:39 Oxygen Delivery Oxygen Delivery Room Air Medical Decision Making - MDM Narrative Medical decision making narrative: Due the patient sitting to the emergency department with report of right hip erythema and fluctuance after a hip replacement approximately one year ago we will obtain basic laboratory testing. Patient's laboratory testing shows an acute kidney injury. Patient be given IV fluids. CT scan of the right hip shows concern for possible abscess versus hematoma. Patient started on broad- spectrum antibiotics of vancomycin and Zosyn. I did call and speak to the on-call orthopedic surgeon Dr. Devine who said that he would notify Dr. Sousa due to this being one of his patients. Due the patient having acute kidney injury the patient will be admitted to the medical service with a orthopedic consult. Called and spoke the admitting hospitalist Dr. Gonzalez and he is ac cepted the patient to their service. Patient be admitted to the hospital this time for further evaluation and management of her possible abscess near her prosthetic hip. - Medical Records Medical records reviewed: Yes I reviewed the patient's medical records. - Lab Data Lab results reviewed: Yes I reviewed the patient's lab results. Result diagrams: 02/14/19 12:55 02/14/19 12:55 Lab Results 02/14/19 02/14/19 02/14/19 Range/Units 12:55 12:55 12:55 WBC 9.4 (4.3-11.1) K/mcL RBC 4.49 (3.82-4.97) M/mcL Hgb 11.5 (11.5-15.4) g/dL Hct 37.8 (35.3-44.9) % MCV 84.2 (83.0-100.0) fL MCH 25.6 L (28.0-33.3) pg MCHC 30.4 L (31.6-35.5) g/dL RDW 17.4 H (11.5-14.5) % Plt Count 456 H (140-400) K/mcL MPV 8.9 L (9.4-12.4) fL Immature Gran % 0.3 (0-4) % Seg Neutrophils % 74.1 % Lymphocytes % 17.3 % Monocytes % 6.8 % Eosinophils % 1.0 % Basophils % 0.5 % Neutrophils # 7.0 (1.6-8.9) K/mcL Lymphocytes # 1.6 (0.6-4.6) K/mcL Monocytes # 0.6 (0.0-1.3) K/mcL Eosinophils # 0.1 (0.0-0.6) K/mcL Basophils # 0.1 (0.0-0.2) K/mcL PT 12.0 (9.4-12.1) Seconds INR 1.1 APTT 34.9 (26.0-36.0) Seconds Sodium 136 (136-145) mEq/L Potassium 5.1 (3.5-5.1) mEq/L Chloride 105 (98-107) mEq/L Carbon Dioxide 20 L (23-29) mEq/L BUN 24 H (8-23) mg/dL Creatinine 1.32 H (0.60-1.20) mg/dL Est GFR ( Amer) 47 L (> 60) Est GFR (Non-Af Amer) 39 L (> 60) BUN/Creatinine Ratio 18 (6-26) Glucose 106 H (70-105) mg/dL Calculated Osmolality 286 (280-300) Calcium 9.8 (8.6-10.3) mg/dL - Radiology Data Radiology results reviewed: Yes I reviewed the patient's radiology results. Hip CT 02/14/19 14:18 IMPRESSION: 1. Suspected fluid collection lateral and posterior to the intertrochanteric aspect of the right femur measuring approximately 10.2 x 3.4 x 8.5 cm. This may represent an abscess or hematoma. Communication with the right hip joint space is not excluded. Adjacent fat stranding and skin thickening compatible with cellulitis. 2. Status post right total hip arthroplasty. Increased interface widening about the femoral stem compatible with loosening versus infection. D/ / Kennedy Fox MD / Kennedy Fox MD Interpreting Provider: Kennedy Fox MD
[2019-02-14 13:41] LABS: Basophils # 0.1 K/mcL (0.0-0.2); Basophils % 0.5 %; Eosinophils # 0.1 K/mcL (0.0-0.6); Hematocrit 37.8 % (35.3-44.9); Hemoglobin 11.5 g/dL (11.5-15.4); Immature Granulocytes % 0.3 % (0-4); Lymphocytes # 1.6 K/mcL (0.6-4.6); Lymphocytes % 17.3 %; Mean Corpuscular HGB Conc 30.4 g/dL (31.6-35.5); Mean Corpuscular Hemoglobin 25.6 pg (28.0-33.3); Mean Corpuscular Volume 84.2 fL (83.0-100.0); Mean Platelet Volume 8.9 fL (9.4-12.4); Monocytes # 0.6 K/mcL (0.0-1.3); Monocytes % 6.8 %; Platelet Count 456 K/mcL (140-400); Red Blood Count 4.49 M/mcL (3.82-4.97); Red Cell Distribution Width 17.4 % (11.5-14.5); Segmented Neutrophils % 74.1 %; White Blood Count 9.4 K/mcL (4.3-11.1)
[2019-02-14 13:55] LABS: INR 1.1
[2019-02-14 13:58] LABS: Activated Partial Thrombo Time 34.9 Seconds (26.0-36.0)
[2019-02-14 14:00] LABS: Calcium 9.8 mg/dL (8.6-10.3); Potassium 5.1 mEq/L (3.5-5.1)
[2019-02-14] MEDS ORDERED: Piperacillin/Tazobactam 3.375 GM in 0.9 % Sodium Chloride Mini Bag 100 ML IVPB ONE (15:09)
[2019-02-14] MEDS ORDERED: 0.9 % Sodium Chloride 1,000 ML IVC ONE (15:22)
[2019-02-14] MEDS ORDERED: *HR* OxyCODONE Immed Rel 5 MG TABLET PO PRN (17:07)
[2019-02-14] MEDS ORDERED: traMADol 50 MG TABLET PO PRN (17:07)
[2019-02-14] MEDS ORDERED: Ondansetron 4 MG/2 ML VIAL IVP PRN (17:07)
[2019-02-14] MEDS ORDERED: Acetaminophen 325 MG TABLET PO PRN (17:07)
[2019-02-14] MEDS ORDERED: Naloxone 0.4 MG/ML INJ IVP PRN (17:07)
[2019-02-14] MEDS ORDERED: *HR* Dextrose 50 % in Water (Syg) 50 ML SYRINGE IVP PRN (17:14)
[2019-02-14] MEDS ORDERED: Dextrose Gel 15 GM/37.5 ML TUBE PO PRN ×2 (17:14)
[2019-02-14] MEDS ORDERED: D5% in Water 1,000 ML IVC PRN (17:14)
--- NOTE | 2019-02-14 17:20 | Internal Med History&Physical ---
Date of Encounter: 02/14/19 Time of Encounter: 16:30 Internal Medicine - H&P: HPI Chief complaint: Right hip abscess Admitted From: Emergency Dept Plans for Post Hospital Care: Home History of present illness: Ms. Cartagena is a 83 year old female with a past medical history significant for hypertension, diabetes mellitus, presented to the hospital because of the progressively worsening right hip pain and abscess. Patient had a right hip surgery in August 2014 which was complicated in May 2017 with abscess. She had an open wound for almost 6-7 months, followed by repeat surgery for right hip replacement in May 2017. She has been doing fine since then until one month ago when she started developing pain in the right hip region. He also noted increased swelling, redness. She went to see orthopedic, there was plan for an outpatient procedure tomorrow with orthopedics. But for the past few days, swelling, pain, redness has been worsening to the point that she cannot tolerate it. So she decided to come to the hospital today. She describes the pain as sharp, nonradiating, aggravated with movement and touch, no relieving factors. Of note, she was also taking Bactrim as an outpatient without any relief. In the ED, patient is clinically stable. CT scan of the hip showed suspected fluid collection lateral and posterior to the intertrochanteric aspect of the right femur measuring approximately 10.2 x 3.4 x 8.5 cm, could be an abscess or hematoma. Communication with the right hip joint not excluded. Adjacent cellulitis. She was given IV antibiitcs, had ortho consulted, and admitted for further management. Past Med Surg Social Fam HX - Past Medical History Medical history: CVA, diabetes, hyperlipidemia, hypertension, osteoporosis, other Additional medical history: carpal tunnel syndrome Psychiatric history: no psych history - Past Surgical History Surgical History: cataract, hysterectomy, orthopedic, other, other Additional surgical history: right hip replacement 2014 - Social History Smoking Status: Never smoker Smokeless Tobacco Status: No Alcohol use: none Drug use: none - Family History Father Living Status: Hx Family Cardiac Disorders: Yes Internal Medicine - H&P: Meds Bran/Gum/Fib/Shaneka/Psyl/Kelp/Pec [Fiber 6 Tablet] 1,000 mg PO DAILY 09/15/17 [ History] Calcium Carbonate/Vitamin D3 [Calcium 600 + Vit D Tablet] 1 tab PO BID 09/15/17 [History] Clopidogrel [Plavix] 75 mg PO DAILY 09/15/17 [History] Lisinopril [Zestril] 20 mg PO BID 09/15/17 [History] Multivitamin [One Daily Multivitamin] 1 tab PO DAILY 09/15/17 [History] Rosuvastatin [Crestor] 20 mg PO HS 09/15/17 [History] metFORMIN [Glucophage] 500 mg PO BIDWM 09/15/17 [History] OxyCODONE Immed Rel [Roxicodone 5 MG] 5 mg PO Q6HR PRN 7 Days #28 tablet 03/01/18 [Rx] Acetaminophen [Tylenol] 650 mg PO Q6HR PRN 03/02/18 [History] Ascorbic Acid [Vitamin C] 500 mg PO 0630 #30 tablet 04/17/18 [Rx] Ferrous Sulfate 325 mg PO 0630 #30 tablet 04/17/18 [Rx] Lactobacillus [Culturelle] 1 each PO BID #42 cap.sprink 04/17/18 [Rx] cephALEXin [Keflex] 500 mg PO Q8H #63 capsule 04/17/18 [Rx] Allergy/AdvReac Type Severity Reaction Status Date / Time No Known Allergies Allergy Verified 03/02/18 14:03 All Systems PM: A 10-system review of systems was performed and is negative for pertinent findings except as documented above in the HPI. Review of systems: General: Negative for fever, chills, rigors. HEENT: Negative for neck swelling, discharge from nose, discharge from ears. EYES: Negative for any discharge from the eyes. Respiratory: Negative for shortness of breath, orthopnea, exertional dyspnea. Cardiovascular: Negative for chest pain, shortness of breath, orthopnea, PND. Gastrintestical: Negative for diarrhea, constipation, blood in stools. Genitourinary: Negative for dysuria, hematuria, nocturia, increased frequency of urine. Hematological: Negative for blood loss, negative for active cancer. Neurological: Negative for headache, dizziness, blurry vision, loss os power and sensations. Endocrinology: Negative for constipation, polyuria, polydipsia. Integumentary: See HPI Musculoskeletal: See HPI Psychiatric: Negative for anxiety or depression. - Constitutional Vitals: Temp Pulse Resp BP Pulse Ox 98.3 F 98 20 156/75 98 02/14/19 12:39 02/14/19 12:39 02/14/19 12:39 02/14/19 12:39 02/14/19 12:39 Exam: General: Alert and oriented, mild physical distress, able to follow commands. HEENT: No thyromegaly, no lymphadenopathy, no discharge. Eyes: No discharge. Normal conjuctiva, no icterus Respiratory: Normal vesicular breathing, no added sounds, breathing equal in both sides. CVS: Normal heart sounds, no murmurs, regular rhthm, no edema Extremities: No peripheral edema, peripheral pulses intact. Lymph nodes: No lymphadenopathy Gastrointestinal: Soft, nontender abdomen, normal abdominal sounds. No distention noted. Genitourinary: No paravertebral tenderness. Skin: Abscess 10 x 4 cm noted with the surrounded erythema on the posterior aspect of the right hip join, warm, tender, no discharge. Neurological: Alert and oriented. No focal deficits. Cranial nerves II-XII intact. Internal Med - H&P Results - Labs CBC & Chem 7: 02/14/19 12:55 02/14/19 12:55 Labs: Short CBC 02/14/19 Range/Units 12:55 WBC 9.4 (4.3-11.1) K/mcL Hgb 11.5 (11.5-15.4) g/dL Hct 37.8 (35.3-44.9) % Plt Count 456 H (140-400) K/mcL Neutrophils # 7.0 (1.6-8.9) K/mcL BMP 02/14/19 12:55 Sodium 136 Potassium 5.1 Chloride 105 Carbon Dioxide 20 L BUN 24 H Creatinine 1.32 H Glucose 106 H Calcium 9.8 - Impressions ITS Impressions Hip CT 02/14/19 14:18 IMPRESSION: 1. Suspected fluid collection lateral and posterior to the intertrochanteric aspect of the right femur measuring approximately 10.2 x 3.4 x 8.5 cm. This may represent an abscess or hematoma. Communication with the right hip joint space is not excluded. Adjacent fat stranding and skin thickening compatible with cellulitis. 2. Status post right total hip arthroplasty. Increased interface widening about the femoral stem compatible with loosening versus infection. D/ / Kennedy Fox MD / Kennedy Fox MD Interpreting Provider: Kennedy Fox MD - Assessment and Plan (1) Abscess of right hip Current Visit: Yes Status: Acute Assessment and plan: History of right hip replacement x 2. Failed outopt antibiotic therpay CT scan of the hip showed suspected fluid collection lateral and posterior to the intertrochanteric aspect of the right femur measuring approximately 10.2 x 3.4 x 8.5 cm, could be an abscess or hematoma. Communication with the right hip joint not excluded. Adjacent cellulitis. Afebrile, no leucocytosis Continue vancomycin and zosyn Ortho on baord. Keep the pt NPO for possible interventions tomorrow PAin management (2) NASEEM (acute kidney injury) Current Visit: Yes Status: Acute Assessment and plan: Cr of 1.32 Baseline around 0.9 Order NS at lower rate Repeat BMP tomorrow (3) DMII (diabetes mellitus, type 2) Current Visit: No Status: Chronic Assessment and plan: On metformin at home, will be held Start on LDSS with the meals Qualifiers: Diabetes mellitus long term care administrator insulin use: without fdc use Diabetes mellitus complication status: without complication Qualified Code(s): E11.9 - Type 2 diabetes mellitus without complications (4) HTN (hypertension) Current Visit: No Status: Chronic Assessment and plan: BP slighyl on the hihger side, Hold lisinoprl in context of NASEEM Will do IV hydralazine as needed for the systolic BP above >160 Qualifiers: Hypertension type: essential hypertension Qualified Code(s): I10 - Essential (primary) hypertension (5) DVT prophylaxis Current Visit: Yes Status: Acute Assessment and plan: subq heparin (6) Hyperlipidemia Current Visit: Yes Status: Acute Assessment and plan: Continue crestor Qualifiers: Hyperlipidemia type: unspecified Qualified Code(s): E78.5 - Hyperlipidemia, unspecified - Time Spent With Patient Total time spent is greater than 50% in coordination of care (as documented) at patient's floor/unit and/or counseling patient:
[2019-02-14] MEDS: 0.9 % Sodium Chloride 1,000 ML IVC SCH (22:17)
[2019-02-14] MEDS: *HR* Heparin 5,000 UNIT/ML VIAL SQ SCH (22:18)
[2019-02-14] MEDS: Piperacillin/Tazobactam 3.375 GM in 0.9 % Sodium Chloride Mini Bag 100 ML IVPB SCH (23:40)
[2019-02-15 04:03] LABS: Basophils # 0.1 K/mcL (0.0-0.2); Basophils % 0.8 %; Eosinophils # 0.2 K/mcL (0.0-0.6); Eosinophils % 3.5 %; Immature Granulocytes % 0.3 % (0-4); Lymphocytes # 1.4 K/mcL (0.6-4.6); Lymphocytes % 22.9 %; Mean Corpuscular HGB Conc 30.3 g/dL (31.6-35.5); Mean Corpuscular Hemoglobin 25.5 pg (28.0-33.3); Mean Corpuscular Volume 84.2 fL (83.0-100.0); Mean Platelet Volume 9.1 fL (9.4-12.4); Monocytes # 0.6 K/mcL (0.0-1.3); Monocytes % 9.6 %; Neutrophils # 3.8 K/mcL (1.6-8.9); Platelet Count 360 K/mcL (140-400); Red Cell Distribution Width 17.4 % (11.5-14.5); Segmented Neutrophils % 62.9 %
[2019-02-15 04:04] LABS: Hemoglobin 9.7 g/dL (11.5-15.4)
[2019-02-15 04:16] LABS: Calcium 9.1 mg/dL (8.6-10.3); Potassium 4.7 mEq/L (3.5-5.1)
--- NOTE | 2019-02-15 06:47 | Orthopedics Progress Note ---
Date of Encounter: 02/15/19 Time of Encounter: 06:46 Subjective Interval history: Patient well-known to me, seen last week in the office for resolving cellulitis of right hip. Patient had a recent ESR and CRP which was slightly elevated, patient admitted with draining right hip. 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 Patient treated with revision surgery, plan is for right hip irrigation and debridement IV antibiotics 6 weeks followed by long-term antibiotic oral We reviewed the risks and benefits as well as recovery. All questions were answered. The patient agreed to this treatment plan and acknowledged an understanding of the treatment plan as described. Objective Vital signs: Vital Signs Temp Pulse Resp BP Pulse Ox 02/15/19 06:15 98.2 F 68 18 109/70 97 02/15/19 05:24 97.6 F 78 20 107/68 97 02/14/19 22:49 97.9 F 71 20 123/71 98 02/14/19 18:38 97.8 F 75 20 132/69 99 02/14/19 18:00 83 16 108/61 97 02/14/19 17:00 80 16 110/60 97 02/14/19 15:00 82 16 111/71 97 02/14/19 12:39 98.3 F 98 20 156/75 98 Intake and Output 02/14/19 02/14/19 02/15/19 15:59 23:59 07:59 Intake Total 1600 / 1600 Balance 1600 / 1600 Intake: IV Fluids 1350 / 1350 0.9 % Sodium Chloride 1,000 ML 1000 / 1000 @ 999 mls/hr IVC .Q1H1M ONE Rx# :[id number] Zosyn 3.375 GM In 0.9 % Sodium 100 / 100 Chloride (Mini-Bag +) 100 ML @ 25 mls/hr IVPB ONCE ONE Rx#: [id number] Vancocin 1,000 MG In 0.9 % 250 / 250 Sodium Chloride 250 ML @ 167 mls/hr IVPB ONCE ONE Rx#: [id number] Oral 250 / 250 Other: Stool Size Moderate Stool Consistency formed Stool Characteristics Normal for Patient Stool Color Brown # Voids 1 # Bowel Movements 1 Weight 72.575 kg Blood Glucose* 148 - Labs CBC & BMP: 02/15/19 03:14 02/15/19 03:14 Labs: Abnormal lab results RBC 3.80 M/mcL (3.82-4.97) L 02/15/19 03:14 Hgb 9.7 g/dL (11.5-15.4) L D 02/15/19 03:14 Hct 32.0 % (35.3-44.9) L 02/15/19 03:14 MCH 25.5 pg (28.0-33.3) L 02/15/19 03:14 MCHC 30.3 g/dL (31.6-35.5) L 02/15/19 03:14 RDW 17.4 % (11.5-14.5) H 02/15/19 03:14 Plt Count 456 K/mcL (140-400) H 02/14/19 12:55 MPV 9.1 fL (9.4-12.4) L 02/15/19 03:14 Chloride 108 mEq/L (98-107) H 02/15/19 03:14 Carbon Dioxide 20 mEq/L (23-29) L 02/14/19 12:55 BUN 24 mg/dL (8-23) H 02/14/19 12:55 Creatinine 1.30 mg/dL (0.60-1.20) H 02/15/19 03:14 Est GFR ( Amer) 48 (> 60) L 02/15/19 03:14 Est GFR (Non-Af Amer) 39 (> 60) L 02/15/19 03:14 Glucose 112 mg/dL (70-105) H 02/15/19 03:14 Consult Discharge Plan - Plan Referrals: Ruiz Weiss DO [Primary Care Provider] -
[2019-02-15] MEDS: *HR* Heparin 5,000 UNIT/ML VIAL SQ SCH ×2 (07:12→18:02)
[2019-02-15] MEDS: Insulin LISPRO 300 UNITS/3 ML VIAL SQ SCH ×3 (07:46→17:41)
[2019-02-15] MEDS ORDERED: Aminoglycoside Consult 1 EACH MC ONE (07:47)
[2019-02-15] MEDS: Piperacillin/Tazobactam 3.375 GM in 0.9 % Sodium Chloride Mini Bag 100 ML IVPB SCH ×3 (07:56→23:35)
[2019-02-15] MEDS ORDERED: Ringers Solution, Lactated 1,000 ML IVC ONE ×3 (07:56→20:48)
--- NOTE | 2019-02-15 12:47 | Internal Med Progress Note ---
Hospitalist Progress Note - Encounter Date of Encounter: 02/15/19 Time of Encounter: 12:45 - Subjective Interval History: Apparently wound opened in shower and purulent discharge came out overnight. Had much pain relief thereafter. Pain currently well controlled and patient has no other concerns. - Exam Vitals: Temp Pulse Resp BP Pulse Ox 97.6 F 66 18 102/62 98 02/15/19 10:48 02/15/19 10:48 02/15/19 10:48 02/15/19 10:48 02/15/19 10:48 Exam: General: Ill-appearing and in no acute distress HEENT: No erythema of posterior pharynx. No exudates. Lymphatics: No mandibular or cervical lymphadenopathy Cardiovascular: RRR. No murmurs. No chest wall tenderness. Lungs: Clear to auscelltation bilaterally. Regular chest rise. Abdomen: Non-tender. No rebound or gaurding. Nl bowel sounds. Extremities: No edema. 2+ pulses radial and pedal pulses Skin: R hip with bandage in place over draining abscess. Tender but no notable erythema Psych: Nl attention. A&Ox3 Neuro: damage cutter II-XII intact. 5/5 strength. Sensation to light touch and pinprick intact. - Assessment and Plan (1) Abscess of right hip Current Visit: Yes Status: Acute Assessment and Plan: Patient with history of right hip replacement with past infected joint presents with purulent drainage of right hip in the setting of stable vitals (did not meet sepsis criteria on admission) and CT with evidence of 10.2x3.4x8.5cm superficial fluid collection with possible extension into right hip joint space. -Started on vancomycin and Zosyn on admission -Spontaneously started draining in the shower yesterday -Evaluated by Ortho this morning and plan to take patient for I&D and washout PLAN: - I&D and washout today - NPO - Pain control - Vancomycin and Zosyn until cx data obtained - will need ID consult for AB duration (2) History of right hip replacement Current Visit: Yes Status: Acute Assessment and Plan: See above (3) NASEEM (acute kidney injury) Current Visit: Yes Status: Acute Assessment and Plan: Presumably secondary to prerenal causes and setting of infection. Mild improvement with small amount of fluid. We will further fluid challenge today. - 1L IVF - Trend (4) DMII (diabetes mellitus, type 2) Current Visit: Yes Status: Chronic Assessment and Plan: Well-controlled on current therapies DVT Prophylaxis: heparin Internal Medicine: Result - Labs CBC & Chem 7: 02/15/19 03:14 02/15/19 03:14 Labs: Short CBC 02/14/19 02/15/19 Range/Units 12:55 03:14 WBC 9.4 6.0 (4.3-11.1) K/mcL Hgb 11.5 9.7 L D (11.5-15.4) g/dL Hct 37.8 32.0 L (35.3-44.9) % Plt Count 456 H 360 (140-400) K/mcL Neutrophils # 7.0 3.8 (1.6-8.9) K/mcL BMP 02/14/19 02/15/19 12:55 03:14 Sodium 136 136 Potassium 5.1 4.7 Chloride 105 108 H Carbon Dioxide 20 L 23 BUN 24 H 22 Creatinine 1.32 H 1.30 H Glucose 106 H 112 H Calcium 9.8 9.1 - ABG Interpretation ABG results: PT/INR, D-dimer PT 12.0 Seconds (9.4-12.1) 02/14/19 12:55 - Impressions Impressions Hip CT 02/14/19 14:18 IMPRESSION: 1. Suspected fluid collection lateral and posterior to the intertrochanteric aspect of the right femur measuring approximately 10.2 x 3.4 x 8.5 cm. This may represent an abscess or hematoma. Communication with the right hip joint space is not excluded. Adjacent fat stranding and skin thickening compatible with cellulitis. 2. Status post right total hip arthroplasty. Increased interface widening about the femoral stem compatible with loosening versus infection. D/ / Kennedy Fox MD / Kennedy Fox MD Interpreting Provider: Kennedy Fox MD Consult Discharge Plan - Plan Referrals: Ruiz Weiss DO [Primary Care Provider] - (4) DMII (diabetes mellitus, type 2) Qualifiers: Diabetes mellitus custodial insulin use: without custodial use Diabetes mellitus complication status: without complication Qualified Code(s): E11.9 - Type 2 diabetes mellitus without complications
[2019-02-15 15:49] LABS: Hematocrit 32.3 % (35.3-44.9); Hemoglobin 9.7 g/dL (11.5-15.4)
--- NOTE | 2019-02-15 17:41 | Anesthesia Evaluation PreOp ---
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) Other Medical History: Renal (NASEEM), Diabetes Type II, Other (ANEMIA, INFECTED HIP) Anesthesia History: No Prior Anesthetic Complications, Past Anesthesia Alcohol Use: none Drug use: none Medications and Allergies Clopidogrel [Plavix] 75 mg PO DAILY 09/15/17 [History] Lisinopril [Zestril] 20 mg PO BID 09/15/17 [History] Rosuvastatin [Crestor] 20 mg PO HS 09/15/17 [History] metFORMIN [Glucophage] 500 mg PO DAILY 09/15/17 [History] Sulfamethoxazole/Trimeth DS [Bactrim Ds] 1 tab PO DAILY 02/15/19 [History] Allergy/AdvReac Type Severity Reaction Status Date / Time No Known Allergies Allergy Verified 02/15/19 13:36 - Meds/Allergy Pre-op Review Medications Reviewed: Yes Allergies Reviewed: Yes Anesthesia Results - Labs 02/15/19 15:38 02/15/19 03:14 Anesthesia Exam Vital Signs/O2 Sat/Glucose, Most Recent Temp Pulse Resp BP Pulse Ox 98.0 F 68 18 106/64 98 02/15/19 14:51 02/15/19 14:51 02/15/19 14:51 02/15/19 14:51 02/15/19 14:51 Blood Glucose* 85 Weight: 73 KG - BMI 27 NPO (# of Hours): 8 - HEENT Mallampati: II Teeth: Edentulous - Cardiac Rhythm: Regular - Pulmonary Breath Sounds: bilateral Clear Anesthesia Assess/Plan ASA Score: 3 Anesthetic Plan: General Monitoring Plan: Standard Monitors Recovery Plan: PACU
[2019-02-15] MEDS ORDERED: Lidocaine -MPF 2% 2 ML VIAL ONE (17:55)
[2019-02-15] MEDS ORDERED: Ondansetron 4 MG/2 ML VIAL ONE (17:55)
[2019-02-15] MEDS ORDERED: *HR* Succinylcholine 200 MG/10 ML VIAL IVP ONE (17:55)
[2019-02-15] MEDS ORDERED: Lidocaine -MPF 4% 5 ML AMPUL ONE (17:55)
[2019-02-15] MEDS ORDERED: Dexamethasone 4 MG/ML VIAL ONE (17:55)
[2019-02-15] MEDS ORDERED: Ethanol\\Acetic Acid\\Na Ace\\Ben 1,000 ML IRRIG.SOLN IR ONE (18:07)
[2019-02-15] MEDS ORDERED: *HR* HYDROmorphone (PF) 1 MG/ML SYRINGE IVP PRN (18:29)
[2019-02-15] MEDS ORDERED: *HR* Promethazine 25 MG/ML VIAL IVP PRN ×2 (18:29→20:48)
[2019-02-15] MEDS ORDERED: *HR* OxyCODONE Immed Rel 5 MG TABLET PO PRN ×2 (18:29→20:48)
[2019-02-15] MEDS ORDERED: Ondansetron 4 MG/2 ML VIAL IVP ONE (18:29)
[2019-02-15] MEDS ORDERED: Acetaminophen IV 1,000 MG/100 ML INFUS..BTL IVPB ONE (18:29)
[2019-02-15] MEDS ORDERED: Ketorolac 30 MG/ML VIAL IVP ONE (18:29)
[2019-02-15] MEDS ORDERED: *HR* Labetalol 20 MG/4 ML SYRINGE IVP PRN (18:29)
[2019-02-15] MEDS ORDERED: *HR* FentaNYL (PF) 100 MCG/2 ML VIAL ONE (18:49)
[2019-02-15] MEDS ORDERED: *HR* Propofol 200 MG/20 ML VIAL IVP ONE (18:49)
[2019-02-15] MEDS ORDERED: *HR* PHENYLEPHRINE 1,000 MCG/10 ML SYRINGE IVP ONE (19:12)
--- NOTE | 2019-02-15 19:31 | Orthopedic Operative Note ---
Date of procedure: 02/15/19 Pre-op diagnosis: Right hip infection Post-op diagnosis: same Procedure: Procedure Irrigation debridement right hip Estimated blood loss: 20 mL Findings: Small less than half centimeter opening no active drainage after incision made there was a tract down to the level of the greater trochanter. No palpable communication with intra-articular components. Procedure: Patient brought to the operative placement the table after general anesthesia was administered patient placed left side down right side up lateral decubitus position all pressure points were padded appropriately and the head was stabilized in this position. Patient had a small pinhole opening no active drainage. The right lower extremity was prepped and draped in sterile surgical fashion patient IV antibiotics prior skin incision. An elliptical incision was made around the opening. Approximately 3 cm in length 1 cm width. Incision made through the skin and subcutaneous tissue, patient had a tract that extended down to be greater trochanter. 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 This was irrigated with 1 L of pulse irrigation antibacterial solution was then irrigated with 3 L of pulse irrigation normal saline. Then sat for now with antibacterial solution of another type. It was then irrigated with 1 L of pulse or condition antibacterial solution followed by 3 L of pulse irrigation normal saline. The deep tissues closed over a JAIDEN drain with #2 PDS suture subcutaneous tissues 1 PDS suture superficially with 0 PDS suture skin was closed with skin phoebe patient placed on dressing extubated transferred to recovery in stable condition. Anesthesia: GETA Surgeon: Kneny Sousa Was there an life enrichment assistant present: No Estimated blood loss (cc): 20 Condition: stable Disposition: PACU
--- NOTE | 2019-02-15 20:41 | Anesthesia Evaluation Post Op ---
Date of Encounter: 02/15/19 Time of Encounter: 20:22 - Discharge PostOp Status: Transfer Patient to floor (Patient's vital signs have been reviewed. Patient is stable postoperatively and has adequately recovered from anesthesia. Patient is determined to have stable airway patency and respiratory function including respiratory rate and oxygen saturation. Patient has a stable heart rate, blood pressure and adequate hydration. Patients mental status is acceptable. Patients temperature is appropriate. Pain and nausea are adequately controlled)
[2019-02-15] MEDS ORDERED: Dextrose Gel 15 GM/37.5 ML TUBE PO PRN ×2 (20:48)
[2019-02-15] MEDS ORDERED: D5% in Water 1,000 ML IVC PRN (20:48)
[2019-02-15] MEDS ORDERED: 0.9 % Sodium Chloride 1,000 ML IVC SCH (20:48)
[2019-02-15] MEDS ORDERED: MOM Conc 10 ML UD.LIQ PO PRN (20:48)
[2019-02-15] MEDS ORDERED: *HR* Dextrose 50 % in Water (Syg) 50 ML SYRINGE IVP PRN (20:48)
[2019-02-15] MEDS ORDERED: Acetaminophen 325 MG TABLET PO PRN (20:48)
[2019-02-15] MEDS ORDERED: Ondansetron 4 MG/2 ML VIAL IVP PRN ×2 (20:48)
[2019-02-15] MEDS ORDERED: HYDROcodone BIT/Homatropine 5 MG TABLET PO PRN (20:48)
[2019-02-15] MEDS ORDERED: Temazepam 15 MG CAPSULE PO PRN (20:48)
[2019-02-15] MEDS ORDERED: Sennosides 8.6 MG TABLET PO PRN (20:48)
[2019-02-15] MEDS ORDERED: Naloxone 0.4 MG/ML INJ IVP PRN ×2 (20:48)
[2019-02-15] MEDS: Gabapentin 300 MG CAPSULE PO SCH (21:18)
[2019-02-16 04:23] LABS: Hematocrit 34.1 % (35.3-44.9); Immature Granulocytes % 0.5 % (0-4); Lymphocytes # 0.5 K/mcL (0.6-4.6); Lymphocytes % 12.5 %; Mean Corpuscular HGB Conc 29.3 g/dL (31.6-35.5); Mean Corpuscular Hemoglobin 25.7 pg (28.0-33.3); Mean Corpuscular Volume 87.7 fL (83.0-100.0); Mean Platelet Volume 8.9 fL (9.4-12.4); Monocytes # 0.1 K/mcL (0.0-1.3); Monocytes % 1.4 %; Neutrophils # 3.6 K/mcL (1.6-8.9); Platelet Count 334 K/mcL (140-400); Red Blood Count 3.89 M/mcL (3.82-4.97); Red Cell Distribution Width 17.6 % (11.5-14.5); Segmented Neutrophils % 85.6 %; White Blood Count 4.3 K/mcL (4.3-11.1)
[2019-02-16 04:49] LABS: BUN/Creatinine Ratio 15 (6-26); Blood Urea Nitrogen 16 mg/dL (8-23); Calcium 8.9 mg/dL (8.6-10.3); Carbon Dioxide 19 mEq/L (23-29); Chloride 109 mEq/L (98-107); Glucose 163 mg/dL (70-105); Osmolality,Calculated 289 (280-300); Potassium 4.7 mEq/L (3.5-5.1); Sodium 137 mEq/L (136-145); eGFR For African Americans > 60 (> 60); eGFR For Non-African Americans 51 (> 60)
[2019-02-16] MEDS: *HR* Heparin 5,000 UNIT/ML VIAL SQ SCH ×2 (05:29→17:23)
--- NOTE | 2019-02-16 06:40 | Orthopedics Progress Note ---
Date of Encounter: 02/16/19 Time of Encounter: 06:39 Subjective Interval history: Patient was seen this morning doing well without complaints. Afebrile vital signs stable. Operative extremity: Neurovascularly intact Dressing clean dry and intact Calves nontender Assessment and plan: Continue with postoperative care Awaiting culture results plan for IV antibiotics 6 weeks. Objective Vital signs: Vital Signs Temp Pulse Resp BP Pulse Ox 02/16/19 03:44 97.3 F L 60 14 95/54 98 02/15/19 23:34 98.3 F 56 15 99/61 98 02/15/19 22:34 98.3 F 57 15 101/56 97 02/15/19 21:34 98.1 F 61 16 108/51 98 02/15/19 21:04 97.8 F 83 17 122/56 99 02/15/19 20:50 100 02/15/19 20:34 97.7 F 68 17 127/67 100 02/15/19 20:18 97.8 F 80 12 140/69 100 02/15/19 20:08 82 16 139/67 100 02/15/19 19:58 73 18 130/51 100 02/15/19 19:48 99.1 F 69 16 114/56 100 02/15/19 18:59 73 120/52 94 02/15/19 18:45 71 14 111/51 94 02/15/19 18:30 73 14 119/52 96 02/15/19 18:15 70 16 134/61 97 02/15/19 18:00 75 18 123/82 97 02/15/19 14:51 98.0 F 68 18 106/64 98 02/15/19 10:48 97.6 F 66 18 102/62 98 Intake and Output 02/15/19 02/15/19 02/16/19 15:59 23:59 07:59 Intake Total 100 / 440 240 / 440 0 / 0 Output Total 770 / 770 440 / 440 Balance 100 / -330 -530 / -330 -440 / -440 Intake: IV Fluids 100 / 200 Zosyn 3.375 GM In 0.9 % Sodium 100 / 200 Chloride (Mini-Bag +) 100 ML @ 25 mls/hr IVPB Q8HR [facility] Rx#: [id number] Oral 240 / 240 0 / 0 Output: Urine 700 / 700 400 / 400 Estimated Blood Loss 20 / 20 Wound Drainage 50 / 50 40 / 40 Right Hip 50 / 50 40 / 40 Other: Meal jello Percent of Meal Consumed 100% # Voids 1 1 Weight 72.6 kg Blood Glucose* 103 147 Patient Weight 02/16/19 23:59 Weight 72.6 kg - Labs CBC & BMP: 02/16/19 03:46 02/16/19 03:46 Labs: Abnormal lab results RBC 3.80 M/mcL (3.82-4.97) L 02/15/19 03:14 Hgb 10.0 g/dL (11.5-15.4) L 02/16/19 03:46 Hct 34.1 % (35.3-44.9) L 02/16/19 03:46 MCH 25.7 pg (28.0-33.3) L 02/16/19 03:46 MCHC 29.3 g/dL (31.6-35.5) L 02/16/19 03:46 RDW 17.6 % (11.5-14.5) H 02/16/19 03:46 Plt Count 456 K/mcL (140-400) H 02/14/19 12:55 MPV 8.9 fL (9.4-12.4) L 02/16/19 03:46 Lymphocytes # 0.5 K/mcL (0.6-4.6) L 02/16/19 03:46 Chloride 109 mEq/L (98-107) H 02/16/19 03:46 Carbon Dioxide 19 mEq/L (23-29) L 02/16/19 03:46 BUN 24 mg/dL (8-23) H 02/14/19 12:55 Creatinine 1.30 mg/dL (0.60-1.20) H 02/15/19 03:14 Est GFR ( Amer) 48 (> 60) L 02/15/19 03:14 Est GFR (Non-Af Amer) 51 (> 60) L 02/16/19 03:46 Glucose 163 mg/dL (70-105) H 02/16/19 03:46 POC Glucose 103 mg/dL (70-99) H 02/15/19 11:18 Consult Discharge Plan - Plan Referrals: Ruiz Weiss DO [Primary Care Provider] -
[2019-02-16] MEDS: Piperacillin/Tazobactam 3.375 GM in 0.9 % Sodium Chloride Mini Bag 100 ML IVPB SCH ×2 (08:28→17:15)
[2019-02-16] MEDS: Multivit/Ca/Min/Fe/FA 1 TAB TABLET PO SCH ×3 (08:28→08:43)
[2019-02-16] MEDS: Ascorbic Acid 500 MG TABLET PO SCH ×4 (08:28→17:23)
[2019-02-16] MEDS: Gabapentin 300 MG CAPSULE PO SCH ×4 (08:28→21:08)
[2019-02-16] MEDS: Insulin LISPRO 300 UNITS/3 ML VIAL SQ SCH ×3 (08:29→17:14)
[2019-02-16] MEDS: 0.9 % Sodium Chloride 1,000 ML IVC SCH (10:58)
--- NOTE | 2019-02-16 11:26 | Internal Med Progress Note ---
Hospitalist Progress Note - Encounter Date of Encounter: 02/16/19 Time of Encounter: 11:23 - Subjective Interval History: Patient went to surgery yesterday. Has already been up with physical therapy this morning and pain is controlled. Cultures still no growth to date. - Exam Vitals: Temp Pulse Resp BP Pulse Ox 97.6 F 61 14 109/62 99 02/16/19 07:41 02/16/19 07:41 02/16/19 07:41 02/16/19 07:41 02/16/19 07:41 Exam: General: Ill-appearing and in no acute distress HEENT: No erythema of posterior pharynx. No exudates. Lymphatics: No mandibular or cervical lymphadenopathy Cardiovascular: RRR. No murmurs. No chest wall tenderness. Lungs: Clear to auscelltation bilaterally. Regular chest rise. Abdomen: Non-tender. No rebound or gaurding. Nl bowel sounds. Extremities: No edema. 2+ pulses radial and pedal pulses Skin: R hip with bandage in place over draining abscess. Tender but no notable erythema Psych: Nl attention. A&Ox3 Neuro: production welding supervisor II-XII intact. 5/5 strength. Sensation to light touch and pinprick intact. - Assessment and Plan (1) Abscess of right hip Current Visit: Yes Status: Acute Assessment and Plan: Patient with history of right hip replacement with past infected joint presents with purulent drainage of right hip in the setting of stable vitals (did not meet sepsis criteria on admission) and CT with evidence of 10.2x3.4x8.5cm superficial fluid collection with possible extension into right hip joint space. -Started on vancomycin and Zosyn on admission -02/15 taken for I&D and washout by Dr. Sousa -Doing well. Pain controlled. Cx NGTD. Working with PT/OT PLAN: - Vancomycin and Zosyn until cx data obtained - will need ID consult for AB duration - F/u cx and narrow ABs accordingly - Pain control - Discussing placement with SW (2) History of right hip replacement Current Visit: Yes Status: Acute Assessment and Plan: See above (3) NASEEM (acute kidney injury) Current Visit: Yes Status: Acute Assessment and Plan: Presumably secondary to prerenal causes and setting of infection. Mild improve ment with small amount of fluid. We will further fluid challenge today. Now resolved. - Trend (4) DMII (diabetes mellitus, type 2) Current Visit: Yes Status: Chronic Assessment and Plan: Well-controlled on current therapies DVT Prophylaxis: heparin - Time Spent with Patient Total time spent is greater than 50% in coordination of care (as documented) at patient's floor/unit and/or counseling patient: Internal Medicine: Result - Labs CBC & Chem 7: 02/16/19 03:46 02/16/19 03:46 Labs: Short CBC 02/15/19 02/16/19 Range/Units 15:38 03:46 WBC 4.3 (4.3-11.1) K/mcL Hgb 9.7 L 10.0 L (11.5-15.4) g/dL Hct 32.3 L 34.1 L (35.3-44.9) % Plt Count 334 (140-400) K/mcL Neutrophils # 3.6 (1.6-8.9) K/mcL BMP 02/16/19 03:46 Sodium 137 Potassium 4.7 Chloride 109 H Carbon Dioxide 19 L BUN 16 Creatinine 1.04 Glucose 163 H Calcium 8.9 - ABG Interpretation ABG results: PT/INR, D-dimer PT 12.0 Seconds (9.4-12.1) 02/14/19 12:55 Consult Discharge Plan - Plan Referrals: Ruiz Weiss DO [Primary Care Provider] - (4) DMII (diabetes mellitus, type 2) Qualifiers: Diabetes mellitus tank terminal gauger insulin use: without mcfp use Diabetes mellitus complication status: without complication Qualified Code(s): E11.9 - Type 2 diabetes mellitus without complications
[2019-02-16] MEDS: Ringers Solution, Lactated 1,000 ML IVC SCH ×2 (12:14→12:15)
[2019-02-17] MEDS: Piperacillin/Tazobactam 3.375 GM in 0.9 % Sodium Chloride Mini Bag 100 ML IVPB SCH ×3 (00:35→20:42)
[2019-02-17 05:16] LABS: Basophils % 0.5 %; Eosinophils # 0.1 K/mcL (0.0-0.6); Eosinophils % 0.9 %; Hematocrit 31.4 % (35.3-44.9); Hemoglobin 9.5 g/dL (11.5-15.4); Immature Granulocytes % 0.2 % (0-4); Lymphocytes # 1.9 K/mcL (0.6-4.6); Lymphocytes % 29.1 %; Mean Corpuscular HGB Conc 30.3 g/dL (31.6-35.5); Mean Corpuscular Hemoglobin 25.5 pg (28.0-33.3); Mean Corpuscular Volume 84.2 fL (83.0-100.0); Mean Platelet Volume 9.1 fL (9.4-12.4); Monocytes # 0.5 K/mcL (0.0-1.3); Monocytes % 8.2 %; Neutrophils # 3.9 K/mcL (1.6-8.9); Platelet Count 354 K/mcL (140-400); Red Blood Count 3.73 M/mcL (3.82-4.97); Red Cell Distribution Width 17.8 % (11.5-14.5); Segmented Neutrophils % 61.1 %; White Blood Count 6.4 K/mcL (4.3-11.1)
[2019-02-17] MEDS: *HR* Heparin 5,000 UNIT/ML VIAL SQ SCH ×2 (05:41→18:05)
[2019-02-17] MEDS: Insulin LISPRO 300 UNITS/3 ML VIAL SQ SCH ×3 (07:48→17:57)
--- NOTE | 2019-02-17 08:03 | Orthopedics Progress Note ---
Date of Encounter: 02/17/19 Time of Encounter: 08:02 Subjective Interval history: Patient was seen this morning doing well without complaints. Afebrile vital signs stable. Operative extremity: Neurovascularly intact Dressing clean dry and intact Calves nontender Assessment and plan: Continue with postoperative care Cultures still no growth to date, negative growth for original culture presurgical. Drain DC'd Objective Vital signs: Vital Signs Temp Pulse Resp BP Pulse Ox 02/17/19 07:25 97.8 F 72 16 143/80 95 02/16/19 23:19 97.6 F 64 18 102/62 97 02/16/19 21:07 97 02/16/19 18:58 97.9 F 64 17 150/77 97 02/16/19 15:15 97.5 F L 57 14 133/74 100 02/16/19 11:44 97.6 F 66 14 96/55 98 Intake and Output 02/16/19 02/17/19 02/17/19 23:59 07:59 15:59 Intake Total 340 / 540 700 / 700 Output Total 320 / 1330 20 Balance 20 / -790 680 / 680 Intake: IV Fluids 100 / 300 700 / 700 0.9 % Sodium Chloride 1,000 ML 600 / 600 @ 50 mls/hr IVC .Q20H [facility] Rx#: [id number] Zosyn 3.375 GM In 0.9 % Sodium 100 / 300 100 / 100 Chloride (Mini-Bag +) 100 ML @ 25 mls/hr IVPB Q8HR [facility] Rx#: [id number] Oral 240 / 240 Output: Urine 300 / 1250 Wound Drainage 20 Right Hip 20 Other: Meal Dinner Percent of Meal Consumed 80% Stool Size Small Stool Consistency formed # Voids 1 1 Blood Glucose* 146 101 - Labs CBC & BMP: 02/17/19 04:15 02/17/19 04:15 Labs: Abnormal lab results RBC 3.73 M/mcL (3.82-4.97) L 02/17/19 04:15 Hgb 9.5 g/dL (11.5-15.4) L 02/17/19 04:15 Hct 31.4 % (35.3-44.9) L 02/17/19 04:15 MCH 25.5 pg (28.0-33.3) L 02/17/19 04:15 MCHC 30.3 g/dL (31.6-35.5) L 02/17/19 04:15 RDW 17.8 % (11.5-14.5) H 02/17/19 04:15 Plt Count 456 K/mcL (140-400) H 02/14/19 12:55 MPV 9.1 fL (9.4-12.4) L 02/17/19 04:15 Lymphocytes # 0.5 K/mcL (0.6-4.6) L 02/16/19 03:46 Chloride 108 mEq/L (98-107) H 02/17/19 04:15 Carbon Dioxide 19 mEq/L (23-29) L 02/16/19 03:46 BUN 24 mg/dL (8-23) H 02/14/19 12:55 Creatinine 1.37 mg/dL (0.60-1.20) H 02/17/19 04:15 Est GFR ( Amer) 45 (> 60) L 02/17/19 04:15 Est GFR (Non-Af Amer) 37 (> 60) L 02/17/19 04:15 Glucose 118 mg/dL (70-105) H 02/17/19 04:15 POC Glucose 174 mg/dL (70-99) H 02/16/19 11:48 Consult Discharge Plan - Plan Referrals: Ruiz Weiss DO [Primary Care Provider] -
[2019-02-17] MEDS: Multivit/Ca/Min/Fe/FA 1 TAB TABLET PO SCH (09:15)
[2019-02-17] MEDS: Ascorbic Acid 500 MG TABLET PO SCH ×2 (09:15→18:05)
[2019-02-17] MEDS: Gabapentin 300 MG CAPSULE PO SCH ×3 (09:15→20:47)
--- NOTE | 2019-02-17 15:01 | Event Note ---
Date of Encounter: 02/07/19 Time of Encounter: 12:00 POD#1 s/p Irrigation debridement right hip [Right hip infection] 02/15/19 Patient seen at bedside. A&Ox3 Dressing and incision c/d/i. Drain with turbid serosanguinous fluid. No calf tenderness, erythema, or warmth. Neurovascularly intact b/l LE. Labwork, vitals, and medications reviewed. Pain control: Adequate Participating in therapy. All questions and concerns addressed. Educated on use of incentive spirometer, ambulation, and hydration. Patient educated on post-operative restrictions and care. Addressed: awaiting culture results JAIDEN drain to continue, anticipate removal 02/17 Patient course and disposition discussed with Dr. Sousa D/C plan: awaiting culture results
--- NOTE | 2019-02-17 15:03 | Event Note ---
Date of Encounter: 02/17/19 Time of Encounter: 11:20 POD#2 s/p Irrigation debridement right hip [Right hip infection] 02/15/19 Patient seen at bedside. A&Ox3 Dressing and incision c/d/i. No calf tenderness, erythema, or warmth. Neurovascularly intact b/l LE. Labwork, vitals, and medications reviewed. Pain control: Adequate Participating in therapy. All questions and concerns addressed. Educated on use of incentive spirometer, ambulation, and hydration. Patient educated on post-operative restrictions and care. Addressed: awaiting culture results JAIDEN drain removed 02/17 Patient course and disposition discussed with Dr. Sousa D/C plan: awaiting culture results
--- NOTE | 2019-02-17 17:40 | Internal Med Progress Note ---
Hospitalist Progress Note - Encounter Date of Encounter: 02/17/19 Time of Encounter: 17:37 - Subjective Interval History: Patient has no acute complaints this morning. Cultures still with no growth to date. - Exam Vitals: Temp Pulse Resp BP Pulse Ox 97.8 F 72 16 143/80 95 02/17/19 07:25 02/17/19 07:25 02/17/19 07:25 02/17/19 07:25 02/17/19 07:25 Exam: General: Ill-appearing and in no acute distress HEENT: No erythema of posterior pharynx. No exudates. Lymphatics: No mandibular or cervical lymphadenopathy Cardiovascular: RRR. No murmurs. No chest wall tenderness. Lungs: Clear to auscelltation bilaterally. Regular chest rise. Abdomen: Non-tender. No rebound or gaurding. Nl bowel sounds. Extremities: No edema. 2+ pulses radial and pedal pulses Skin: R hip with bandage in place over draining abscess. Tender but no notable erythema Psych: Nl attention. 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 5/5 strength. Sensation to light touch and pinprick intact. - Assessment and Plan (1) Abscess of right hip Current Visit: Yes Status: Acute Assessment and Plan: Patient with history of right hip replacement with past infected joint presents with purulent drainage of right hip in the setting of stable vitals (did not meet sepsis criteria on admission) and CT with evidence of 10.2x3.4x8.5cm superficial fluid collection with possible extension into right hip joint space. -Started on vancomycin and Zosyn on admission -02/15 taken for I&D and washout by Dr. Sousa -Cultures still pending PLAN: - Continu vanc and zosyn until cultures completed; will consult ID for assistance regarding antibiotic course - F/u cx and narrow ABs accordingly - Pain control - Placement will depend on course and route of antibiotics; Per case managment, patient has ECF bed for custodial IV abx if needed (2) DMII (diabetes mellitus, type 2) Current Visit: Yes Status: Chronic Assessment and Plan: Continue current threapy (3) NASEEM (acute kidney injury) Current Visit: Yes Status: Acute Assessment and Plan: Presumably secondary to prerenal causes and setting of infection. Resolved with fluid hydration (4) History of right hip replacement Current Visit: Yes Status: Acute Assessment and Plan: See section on abscess - Time Spent with Patient Total time spent is greater than 50% in coordination of care (as documented) at patient's floor/unit and/or counseling patient: 30 minutes Plan of Care Discussed with: patient Internal Medicine: Result - Labs CBC & Chem 7: 02/17/19 04:15 02/17/19 04:15 Labs: Short CBC 02/17/19 Range/Units 04:15 WBC 6.4 (4.3-11.1) K/mcL Hgb 9.5 L (11.5-15.4) g/dL Hct 31.4 L (35.3-44.9) % Plt Count 354 (140-400) K/mcL Neutrophils # 3.9 (1.6-8.9) K/mcL BMP 02/17/19 04:15 Sodium 139 Potassium 4.0 Chloride 108 H Carbon Dioxide 23 BUN 17 Creatinine 1.37 H Glucose 118 H Calcium 9.0 - ABG Interpretation ABG results: PT/INR, D-dimer PT 12.0 Seconds (9.4-12.1) 02/14/19 12:55 Consult Discharge Plan - Plan Referrals: Ruiz Weiss DO [Primary Care Provider] - (2) DMII (diabetes mellitus, type 2) Qualifiers: Diabetes mellitus exterminator helper insulin use: without custodial use Diabetes mellitus complication status: without complication Qualified Code(s): E11.9 - Type 2 diabetes mellitus without complications
[2019-02-18] MEDS: Piperacillin/Tazobactam 3.375 GM in 0.9 % Sodium Chloride Mini Bag 100 ML IVPB SCH ×2 (01:12→07:58)
[2019-02-18 04:54] LABS: Hemoglobin 9.9 g/dL (11.5-15.4)
[2019-02-18] MEDS: *HR* Heparin 5,000 UNIT/ML VIAL SQ SCH ×2 (05:39→17:58)
[2019-02-18] MEDS: Insulin LISPRO 300 UNITS/3 ML VIAL SQ SCH ×3 (07:54→18:47)
[2019-02-18] MEDS: Ascorbic Acid 500 MG TABLET PO SCH ×2 (07:57→15:47)
[2019-02-18] MEDS: Multivit/Ca/Min/Fe/FA 1 TAB TABLET PO SCH (07:57)
[2019-02-18] MEDS: Gabapentin 300 MG CAPSULE PO SCH ×3 (07:58→20:09)
--- NOTE | 2019-02-18 12:07 | Infectious Disease Consult ---
Infectious Disease-Consult - Encounter Date/Time Date of Encounter: 02/18/19 Time of Encounter: 11:45 - Data of Consult Patient: known to practice within the last 3 years Reason for consult: "Patient presenting with abscess of right hip with previous right hip replacement. S/p I&D and washout per surgery. Multiple abscesses in the past. Cultures pending. Consult for recommendations with regards to antibiotic course. Thank you." Consult date: 02/18/19 Requesting Physician: Allen Moser MD Primary Care Provider: Ruiz Weiss, - HPI HPI: Ms. 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 The patient was admitted to the hospital 02/14/19 for right hip abscess and acute kidney injury. We are consulted 02/18/19 for further workup and treatment recommendations for right hip infection. Briefly, the patient is a 83-year-old female, known to the infectious disease service as we were consulted on her case in the past. The patient is a long-s tanding history of right hip infections dating back to September 2017 when she had a right hip hematoma and underwent an I&D of the right thigh abscess. Cultures were positive for MSSA at that time. She was treated with about a month's worth of oral clindamycin. She was then treated with 30 days of oral Bactrim daily in November 2017. She started having some purulent drainage from the hip back in 2017 and was prescribed 20 days of Bactrim and Augmentin. She was referred back to Dr. Wadsworth due to MRI changes and drainage from the hip. She was taken back to the operating room February 2018 and underwent a revision of the femur and right total hip replacement I&D. Intraoperative cultures were positive for MSSA. She was treated with IV vancomycin for about 2 weeks and was transitioned to IV Ancef. She was started on oral rifampin in addition to the IV antibiotics and March, but was unable to tolerate the medication. She was referred to our office in April. She completed her 6 week postop course of IV antibiotics 04/17/19 was transitioned to oral Keflex for 3 months which she completed. In January 2018 she then developed a red hard area to her incision. She saw her PCP who prescribed her 10 days of oral Bactrim and referred her back to orthopedics who gave her an IM Rocephin injection. She was seen again on February [address] Sousa and prescribed a 30 day course of treatment. On she saw Dr. Sousa again and was noted to have elevated inflammatory markers. She is scheduled to undergo a right hip joint aspiration, but presented to the ER on the day of admission with complaints of right hip pain with blistering and redness. Upon arrival, she was tachycardic, but was afebrile hemodynamically stable. White blood cell count was normal. Acute kidney injury was noted. Should her right hip CT that showed a fluid collection to the lateral posterior intertrochanteric aspect of the right femur concerning for abscess versus hematoma as well as cellulitis and findings consistent with hardware loosening versus infection. Wound cultures were obtained and were negative. She was started on vancomycin and Zosyn and was admitted to the hospital for further evaluation. Since admission, the patient has remained hemodynamically stable. Her white blood cell count has remained normal. She was evaluated by orthopedics and taken to the operating room 02/15/19 where she underwent an I&D of the right hip. Intraoperative cultures are positive for GPC. Currently, she is on IV Zosyn. We have been asked to evaluate and make further recommendations. During my exam today, the patient states that other than her hip she has been in her usual state of health. She denies fevers, chills, or rigors. Denies headache or neck pain. Denies chest pain, shortness of breath, or cough. Denies nausea, vomiting, diarrhea, constipation. Denies abdominal pain or urinary complaints. States her stools have been a little loose since being on IV antibiotics here. Denies oral thrush or skin rashes. States the reason she came to the emergency department was because she noticed a blister to the surgical incision site on Friday. When she woke up on Friday, she noticed that the blister had spread so she presented to the ER. She reports that the hip was red and hot and painful. She states her appetite has been okay. The patient lives at home alone. She is retired. She denies tobacco, alcohol, illicit drug use. Denies any pet or animal exposures. Denies any recent travel. - ROS Review of Systems: All systems reviewed and no additional remarkable complaints except as stated. - Results CBC & Chem 7: 02/18/19 03:30 02/17/19 04:15 - Exam Vitals: Temp Pulse Resp BP Pulse Ox 98 F 73 16 124/71 96 02/18/19 10:35 02/18/19 10:35 02/18/19 10:35 02/18/19 10:35 02/18/19 10:35 Exam: Head: Atraumatic, normal inspection, normocephalic. Eye: EOMI, PERRLA, no scleral icterus noted. ENT: Mucous membranes moist. No odontogenic infection noted. Neck: Normal inspection, no meningismus. Respiratory: Clear to auscultation. No rales, respiratory distress, rhonchi, or wheezes noted. Cardiovascular: Regular rate and rhythm, S1 and S2 audible. No murmurs, rubs, or gallops. GI: Soft, nondistended, normal bowel sounds. Nontender. Extremities:No joint swelling, pedal edema, or tenderness noted. Right hip surgical site with phoebe intact. No surrounding erythema. Mild tenderness noted with palpation. Dressing with moderate amount of serosanguineous drainage. Back: Normal inspection. No vertebral tenderness noted. Neurological: Alert, oriented 3, no focal deficits. Psychiatric: normal affect, normal mood. Skin: Dry, intact, warm. Normal color. No rashes. Clopidogrel [Plavix] 75 mg PO DAILY 09/15/17 [History] Lisinopril [Zestril] 20 mg PO BID 09/15/17 [History] Rosuvastatin [Crestor] 20 mg PO HS 09/15/17 [History] metFORMIN [Glucophage] 500 mg PO DAILY 09/15/17 [History] Sulfamethoxazole/Trimeth DS [Bactrim Ds] 1 tab PO DAILY 02/15/19 [History] Allergy/AdvReac Type Severity Reaction Status Date / Time No Known Allergies Allergy Verified 02/15/19 13:36 - Assessment and Plan (1) Infection of prosthetic total hip joint Current Visit: No Status: Acute Location: Right hip. Causative organism: Unclear. Likely MSSA based on previous cultures. Etiology: Unclear. Seating of the hardware versus nonhealing surgical site. CT of the right hip 02/14/19 showed a fluid collection to the lateral and posterior intertrochanteric aspect of the right femur concerning for abscess versus hematoma. Orthopedics consulted. Status post I&D of the right hip 02/15/19. Intraoperative cultures are positive for gram-positive cocci, final ID and sensitivities pending. Currently on IV Zosyn. Qualifiers: Encounter type: subsequent encounter Qualified Code(s): T84.59XD - Infection and inflammatory reaction due to other internal joint prosthesis, subsequent encounter; Z96.649 - Presence of unspecified artificial hip joint SNOMED Code(s): 741200855 (2) NASEEM (acute kidney injury) Current Visit: Yes Status: Acute Serum creatinine elevated at 1.32 on admission. Etiology: Unclear. Improved. Continue to trend. This adjusting antibiotics and avoid nephrotoxins as able. SNOMED Code(s): 62216850, 04899611 (3) History of right hip replacement Current Visit: Yes Status: Acute Status post right total hip replacement [address] Thomson. SNOMED Code(s): 284710373, 191933103 (4) Status post revision of total hip replacement Current Visit: No Status: Acute Status post revision femur right total hip arthroplasty I&D 03/02/[address] Sousa. Intraoperative cultures were positive for MSSA 2 strains. Treated with six weeks of IV antibiotics (Vanc followed by cefazolin) with 3 months of PO Keflex. SNOMED Code(s): 036616595, 281779818, 954333990, 487541792 (5) DMII (diabetes mellitus, type 2) Current Visit: Yes Status: Chronic Recommend aggressive glucose monitoring to promote wound healing and prevent re- infection Management per the primary team. Qualifiers: Diabetes mellitus fpc insulin use: without fpc use Diabetes mellitus complication status: without complication Qualified Code(s): E11.9 - Type 2 diabetes mellitus without complications SNOMED Code(s): 82326917 (6) HTN (hypertension) Current Visit: No Status: Chronic Qualifiers: Hypertension type: essential hypertension Qualified Code(s): I10 - Essential (primary) hypertension SNOMED Code(s): 35759114 (7) History of CVA (cerebrovascular accident) Current Visit: No Status: Chronic SNOMED Code(s): 914556182 (8) Hyperlipidemia Current Visit: Yes Status: Acute Qualifiers: Hyperlipidemia type: unspecified Qualified Code(s): E78.5 - Hyperlipidemia, unspecified SNOMED Code(s): 31582453 - Recommendations Recommendations: Await intra-op cultures to finalize. Post-op care per the orthopedics team. Check ESR and CRP. Discontinue Zosyn. Start cefazolin 2 grams IV Q8H. Start Vancomycin IV. Pharmacy to dose. Goal trough ~15. Duration of treatment depends on the clinical picture, but likely at least 6 weeks of IV antibiotics followed by orals. May consider chronic oral suppressive therapy. Consult VAT for midline placement prior to discharge once final antibiotic recommendations are made. Will need weekly CBC, BUN/Cr, ESR, CRP. Will need weekly IV care per protocol. Follow up with ID 03/04/19 at 1400. Past Med Surg Social Fam HX - Past Medical History Attestation: Yes The following information was validated with the patient. Source: patient, old records reviewed, nursing notes reviewed Medical history: CVA, diabetes, hyperlipidemia, hypertension, osteoporosis, other Additional medical history: carpal tunnel syndrome Psychiatric history: no psych history - Past Surgical History Surgical History: cataract, hysterectomy, orthopedic, other, other Additional surgical history: right hip replacement 2014 - Social History Smoking Status: Never smoker Smokeless Tobacco Status: No Alcohol use: none Drug use: none Occupational status: retired Current living situation: Home - Independent Activity Level: Uses cane/walker Recent Out of Country Travel Within the Last 8 Weeks: No Exposure or Possible Exposure to Illness During Travel: No - Family History Father Living Status: Hx Family Cardiac Disorders: Yes Consult Discharge Plan - Plan Referrals: Nicolette Landrum CNP [Advanced Practice Nurse] - 03/04/19 2:00 pm Ruiz Weiss DO [Primary Care Provider] - - Attending Attestation I have personally performed a face to face evaluation on this patient. I have reviewed and agree with the care plan. This is an addendum to original report dictated by Nicolette Landrum CNP. Please refer to Nicolette's note for full detail. Agree with above history of present illness, review of system and physical exam findings. Assessment and plan: 1. CARL in 2014 - R hip abscess september 2017 with MSSA treated with clinda orally for 24 days November 2017 hardness around the incision - treated with 30 days of daily bactrim January 2018 drainage R hip - treated with 20 days with Augmentin and Bactrim February MRI with draining sinus - s/p revision. Cultures with MSSA treated with 2 weeks with vanc followed with cefazolin for 4 weeks April 2018 s/p keflex x 3 months January 2019 another course of antibiotics with no improvement. 2. Prosthetic joint infection of the right hip causative organism likely MSSA status post I&D of the right hip 02/15/2019 Intra-Op cultures gram-positive cocci but final ID is pending 3. Acute kidney injury Recommendations: Await intra-op cultures to finalize. Post-op care per the orthopedics team. Check ESR and CRP. Discontinue Zosyn. Start cefazolin 2 grams IV Q8H. Start Vancomycin IV. Pharmacy to dose. Goal trough ~15. Duration of treatment depends on the clinical picture, but likely at least 6 weeks of IV antibiotics followed by orals. May consider chronic oral suppressive therapy. Consult VAT for midline placement prior to discharge once final antibiotic recommendations are made. Will need weekly CBC, BUN/Cr, ESR, CRP. Will need weekly IV care per protocol. Follow up with ID 03/04/19 at 1400.
--- NOTE | 2019-02-18 14:57 | Internal Med Progress Note ---
Hospitalist Progress Note - Encounter Date of Encounter: 02/18/19 Time of Encounter: 14:57 - Subjective Interval History: Patient seen and examined. No acute events overnight. Patient has no acute complaints. Final cultures still pending. Currently growing gram positive cocci. - Exam Vitals: Temp Pulse Resp BP Pulse Ox 98 F 73 16 124/71 96 02/18/19 10:35 02/18/19 10:35 02/18/19 10:35 02/18/19 10:35 02/18/19 10:35 Exam: General: Ill-appearing and in no acute distress HEENT: No erythema of posterior pharynx. No exudates. Lymphatics: No mandibular or cervical lymphadenopathy Cardiovascular: RRR. No murmurs. No chest wall tenderness. Lungs: Clear to auscelltation bilaterally. Regular chest rise. Abdomen: Non-tender. No rebound or gaurding. Nl bowel sounds. Extremities: No edema. 2+ pulses radial and pedal pulses Skin: R hip with bandage in place over draining abscess. Tender but no notable erythema Psych: Nl attention. A&Ox3 Neuro: refund specialist II-XII intact. 5/5 strength. Sensation to light touch and pinprick intact. - Assessment and Plan (1) Abscess of right hip Current Visit: Yes Status: Acute Assessment and Plan: Patient with history of right hip replacement with past infected joint presents with purulent drainage of right hip in the setting of stable vitals (did not meet sepsis criteria on admission) and CT with evidence of 10.2x3.4x8.5cm superficial fluid collection with possible extension into right hip joint space. -Started on vancomycin and Zosyn on admission -02/15 taken for I&D and washout by Dr. Sousa -Cultures still pending; now growing gram positive cocci PLAN: - Continu vanc and zosyn until cultures completed; ID on board for assistance regarding antibiotic course - F/u cx and narrow ABs accordingly - Pain control - Placement will depend on course and route of antibiotics; Per case managment, patient has ECF bed for terminal supervisor IV abx if needed (2) DMII (diabetes mellitus, type 2) Current Visit: Yes Status: Chronic Assessment and Plan: Continue current threapy (3) NASEEM (acute kidney injury) Current Visit: Yes Status: Acute Assessment and Plan: Presumably secondary to prerenal causes and setting of infection. Resolved with fluid hydration (4) History of right hip replacement Current Visit: Yes Status: Acute Assessment and Plan: See section on abscess - Time Spent with Patient Total time spent is greater than 50% in coordination of care (as documented) at patient's floor/unit and/or counseling patient: 30 minutes Plan of Care Discussed with: patient Internal Medicine: Result - Labs CBC & Chem 7: 02/18/19 03:30 02/17/19 04:15 Labs: Short CBC 02/18/19 Range/Units 03:30 Hgb 9.9 L (11.5-15.4) g/dL Hct 33.0 L (35.3-44.9) % - ABG Interpretation ABG results: PT/INR, D-dimer PT 12.0 Seconds (9.4-12.1) 02/14/19 12:55 Consult Discharge Plan - Plan Referrals: Nicolette Landrum, RELAY ADJUSTER [Advanced Practice Nurse] - 03/04/19 2:00 pm Ruiz Weiss, [Primary Care Provider] - (2) DMII (diabetes mellitus, type 2) Qualifiers: Diabetes mellitus terminal supervisor insulin use: without mcfp use Diabetes mellitus complication status: without complication Qualified Code(s): E11.9 - Type 2 diabetes mellitus without complications
[2019-02-18] MEDS: ceFAZolin 2,000 MG in 0.9 % Sodium Chloride 100 ML IVPB SCH (15:49)
[2019-02-18] MEDS ORDERED: ceFAZolin 2,000 MG in 0.9 % Sodium Chloride 100 ML IVPB SCH (16:00)
--- NOTE | 2019-02-18 16:54 | Orthopedics Progress Note ---
Date of Encounter: 02/18/19 Time of Encounter: 09:30 - Assessment and Plan (1) Infection of prosthetic total hip joint Status: Acute Qualifiers: Encounter type: subsequent encounter Qualified Code(s): T84.59XD - Infection and inflammatory reaction due to other internal joint prosthesis, subsequent encounter; Z96.649 - Presence of unspecified artificial hip joint (2) History of right hip replacement Status: Chronic Subjective Principal diagnosis: right hip Interval history: POD#3 s/p Irrigation debridement right hip [Right hip infection] 02/15/19 Patient seen at bedside. A&Ox3 Dressing and incision c/d/i. No calf tenderness, erythema, or warmth. Neurovascularly intact b/l LE. Labwork, vitals, and medications reviewed. Pain control: Adequate Participating in therapy. All questions and concerns addressed. Educated on use of incentive spirometer, ambulation, and hydration. Patient educated on post-operative restrictions and care. Addressed: awaiting culture results JAIDEN drain removed 02/17 Patient course and disposition discussed with Dr. Sousa D/C plan: awaiting culture results Objective Vital signs: Vital Signs Temp Pulse Resp BP Pulse Ox 02/18/19 16:12 98.0 F 74 18 165/88 99 02/18/19 10:35 98 F 73 16 124/71 96 02/18/19 06:41 98.2 F 67 18 129/82 94 02/18/19 05:10 97.8 F 83 15 154/72 02/17/19 22:48 96 02/17/19 19:40 98.2 F 74 16 136/72 96 Intake and Output 02/18/19 02/18/19 02/18/19 07:59 15:59 23:59 Intake Total 200 / 200 Output Total Balance 199 / 199 Intake: IV Fluids 100 / 100 Zosyn 3.375 GM In 0.9 % Sodium 100 / 100 Chloride (Mini-Bag +) 100 ML @ 25 mls/hr IVPB Q8HR [facility] Rx#: [id number] Oral 100 / 100 Output: Right Nephrostomy Other: # Voids 1 # Bowel Movements 1 Blood Glucose* 121 131 105 - Labs CBC & BMP: 02/18/19 03:30 02/17/19 04:15 Labs: Abnormal lab results RBC 3.73 M/mcL (3.82-4.97) L 02/17/19 04:15 Hgb 9.9 g/dL (11.5-15.4) L 02/18/19 03:30 Hct 33.0 % (35.3-44.9) L 02/18/19 03:30 MCH 25.5 pg (28.0-33.3) L 02/17/19 04:15 MCHC 30.3 g/dL (31.6-35.5) L 02/17/19 04:15 RDW 17.8 % (11.5-14.5) H 02/17/19 04:15 Plt Count 456 K/mcL (140-400) H 02/14/19 12:55 MPV 9.1 fL (9.4-12.4) L 02/17/19 04:15 Lymphocytes # 0.5 K/mcL (0.6-4.6) L 02/16/19 03:46 Chloride 108 mEq/L (98-107) H 02/17/19 04:15 Carbon Dioxide 19 mEq/L (23-29) L 02/16/19 03:46 BUN 24 mg/dL (8-23) H 02/14/19 12:55 Creatinine 1.37 mg/dL (0.60-1.20) H 02/17/19 04:15 Est GFR ( Amer) 45 (> 60) L 02/17/19 04:15 Est GFR (Non-Af Amer) 37 (> 60) L 02/17/19 04:15 Glucose 118 mg/dL (70-105) H 02/17/19 04:15 POC Glucose 121 mg/dL (70-99) H 02/18/19 07:00 Consult Discharge Plan - Plan Additional Instructions: Discharge Instructions: Total Hip Replacement Please call [facility] ([phone]), your Primary Care Physician, or report to the Emergency Room if you have any of the following symptoms: Nausea, vomiting, fever greater that 101.5, swelling, chest pain, shortness of breath, increased pain/redness/drainage/odor for your incision site, numbness/tingling, or any other concerning symptoms. ACTIVITY:Weight-bearing as tolerated for 8 weeks with hip dislocation precautions that physical therapy taught you. You may progress as tolerated under the guidance of your physical therapist. You do not need to sleep with a pillow between your legs. You can also seep on the operative side or on your stomach. Incentive Spirometer 10 times an hour. MEDICATIONS: Upon discharge resume your home medications. Take all the medications as prescribed. Take a stool softener if taking narcotic pain medications. Stool softeners are only effective if you drink enough fluids. Drink 6-8 glass of water or fluids a day, unless this is not allowed for another health problem. Despite using stool softeners, if you haven't had a bowel movement in 3 days, please switch to a gentle laxative. Gentle laxatives are sold over the counter. You should have a bowel movement within 24 hours, if not call the office. You will be discharged from the hospital with a prescription for pain medication. You are encouraged to decrease the use of narcotic pain medication as tolerated. Should you require a refill, please call the office. [facility] prescribes narcotic pain medication for only 4-6 weeks after surgery. If you require pain medication beyond this time period, you may be referred to your Primary Care Physician or to the Pain Clinic for further evaluation. Plan ahead for refills on pain medication as many narcotics either need to be picked up at the office or mailed. It is best to call 48-72 hours in advance of needing a prescription refill so you don't run out of medication. To help control the post-operative pain, you may take NSAIDs (Aleve,Advil, Motrin, ibuprofen, naprosyn) or Tylenol as prescribed on the bottle in addition to the pain medication. ANTICOAGULATION (blood thinners): Continue your Aspirin, Lovenox or Coumadin as prescribed to help prevent a blood clot in the leg or in the lungs. As long as your incision remains dry and you tolerate the NSAIDs (Aleve, Advil, Motrin, Ibuprofen, Naprosyn), it is OK to use the NSAIDS while you are taking your anticoagulation medication. Should your incision start to drain, stop the NSAID and contact our office. Common symptoms of blood clot in the legs include: localized pain, swelling, calf tenderness, redness or discoloration of the skin. Blood clot in the lung symptoms include: shortness of breath, rapid pulse, sweating, and chest pain that worsens with deep breathing, coughing up blood, lightheadedness, feelings of anxiety. If you experience any of these symptoms notify your physician immediately, go to the emergency room, or if having trouble breathing, call 911. WOUND CARE: Leave the dressing on for 7 to 10days. You may change the dressing if it is saturated greater than 50%. Do not get the dressing wet at anytime. Wash your hands with antibacterial soap, rinse and dry prior to any wound care. If you have phoebe the visiting nurse or rehab facility can remove the stapes 10-14 days after surgery and place steri-strips across the wound. Leave the steri-strips in place until they fall off on their own. You may let water from the shower run on top of the steri-strips. If you do not have a visiting nurse or rehab facility, you will need to return to the office at 10-14 days for the phoebe to be removed. If you have itching or redness around the dressing call the office. FOLLOW-UP: Please follow up with your surgeon in the orthopedic clinic in 6 weeks from the day of surgery. If you have phoebe that need to be removed, you will need to come back to the office in 10-14 days from the day of surgery. Patient to f/u with ID 03/04/2019 and ortho 1 week after discharge Referrals: Genet Gibbons PAC [Physician Water Main Inspector] - Nicolette Landrum CNP [Advanced Practice Nurse] - 03/04/19 2:00 pm Prescriptions: ceFAZolin [Ancef] 2,000 mg IVPB Q12HR #168 vial Prescription Printed
[2019-02-19] MEDS: ceFAZolin 2,000 MG in 0.9 % Sodium Chloride 100 ML IVPB SCH (03:05)
[2019-02-19] MEDS: *HR* Heparin 5,000 UNIT/ML VIAL SQ SCH (05:57)
[2019-02-19 06:40] VITALS: BP 139/80
[2019-02-19] MEDS: Insulin LISPRO 300 UNITS/3 ML VIAL SQ SCH (07:22)
[2019-02-19] MEDS: Gabapentin 300 MG CAPSULE PO SCH (07:23)
[2019-02-19] MEDS: Ascorbic Acid 500 MG TABLET PO SCH (07:25)
[2019-02-19] MEDS: Multivit/Ca/Min/Fe/FA 1 TAB TABLET PO SCH (07:25)
--- NOTE | 2019-02-19 07:46 | Orthopedics Progress Note ---
Date of Encounter: 02/19/19 Time of Encounter: 08:45 - Assessment and Plan (1) History of right hip replacement Status: Chronic (2) Infection of prosthetic total hip joint Status: Acute Qualifiers: Encounter type: subsequent encounter Qualified Code(s): T84.59XD - Infection and inflammatory reaction due to other internal joint prosthesis, subsequent encounter; Z96.649 - Presence of unspecified artificial hip joint Subjective Principal diagnosis: right hip infection Interval history: POD#4 s/p Irrigation debridement right hip [Right hip infection] 02/15/19 Patient seen at bedside. A&Ox3 Dressing and incision c/d/i. No calf tenderness, erythema, or warmth. Neurovascularly intact b/l LE. Labwork, vitals, and medications reviewed. Pain control: Adequate Participating in therapy. All questions and concerns addressed. Educated on use of incentive spirometer, ambulation, and hydration. Patient educated on post-operative restrictions and care. Addressed: awaiting culture results - prelim positive; infectious disease team on board JAIDEN drain removed 02/17 Patient course and disposition discussed with Dr. Sousa D/C plan: awaiting culture results Objective Vital signs: Vital Signs Temp Pulse Resp BP Pulse Ox 02/19/19 06:33 97.8 F 67 16 139/80 98 02/18/19 18:37 98.2 F 93 18 168/75 99 02/18/19 16:12 98.0 F 74 18 165/88 99 02/18/19 10:35 98 F 73 16 124/71 96 Intake and Output 02/18/19 02/18/19 02/19/19 15:59 23:59 07:59 Intake Total 640 / 840 150 / 150 Output Total 0 / 0 Balance 640 / 839 150 / 150 Intake: IV Fluids 350 / 450 100 / 100 Vancocin 1,000 MG In 0.9 % 250 / 250 Sodium Chloride 250 ML @ 167 mls/hr IVPB Q24H ANATOLY Rx#: [id number] Ancef 2,000 MG In 0.9 % Sodium 100 / 100 100 / 100 Chloride 100 ML @ 200 mls/hr IVPB Q12H ANATOLY Rx#:[id number] Oral 290 / 390 50 / 50 Output: Urine 0 / 0 Other: Meal Dinner Percent of Meal Consumed 0% # Voids 2 1 1 Blood Glucose* 131 165 102 - Labs CBC & BMP: 02/18/19 03:30 02/17/19 04:15 Labs: Abnormal lab results RBC 3.73 M/mcL (3.82-4.97) L 02/17/19 04:15 Hgb 9.9 g/dL (11.5-15.4) L 02/18/19 03:30 Hct 33.0 % (35.3-44.9) L 02/18/19 03:30 MCH 25.5 pg (28.0-33.3) L 02/17/19 04:15 MCHC 30.3 g/dL (31.6-35.5) L 02/17/19 04:15 RDW 17.8 % (11.5-14.5) H 02/17/19 04:15 Plt Count 456 K/mcL (140-400) H 02/14/19 12:55 MPV 9.1 fL (9.4-12.4) L 02/17/19 04:15 Lymphocytes # 0.5 K/mcL (0.6-4.6) L 02/16/19 03:46 ESR 41 mm/hr (0-15) H 02/19/19 03:50 Chloride 108 mEq/L (98-107) H 02/17/19 04:15 Carbon Dioxide 19 mEq/L (23-29) L 02/16/19 03:46 BUN 24 mg/dL (8-23) H 02/14/19 12:55 Creatinine 1.37 mg/dL (0.60-1.20) H 02/17/19 04:15 Est GFR ( Amer) 45 (> 60) L 02/17/19 04:15 Est GFR (Non-Af Amer) 37 (> 60) L 02/17/19 04:15 Glucose 118 mg/dL (70-105) H 02/17/19 04:15 POC Glucose 165 mg/dL (70-99) H 02/18/19 20:24 C-Reactive Protein 20 mg/L (Less than 10) H 02/19/19 03:50 - VTE Documentation of Mechanical Device: Venous foot pump, device Consult Discharge Plan - Plan Additional Instructions: Discharge Instructions: Total Hip Replacement Please call [facility] ([phone]), your Primary Care Physician, or report to the Emergency Room if you have any of the following symptoms: Nausea, vomiting, fever greater that 101.5, swelling, chest pain, shortness of breath, increased pain/redness/drainage/odor for your incision site, numbness/tingling, or any other concerning symptoms. ACTIVITY:Weight-bearing as tolerated for 8 weeks with hip dislocation precautions that physical therapy taught you. You may progress as tolerated under the guidance of your physical therapist. You do not need to sleep with a pillow between your legs. You can also seep on the operative side or on your stomach. Incentive Spirometer 10 times an hour. MEDICATIONS: Upon discharge resume your home medications. Take all the medications as prescribed. Take a stool softener if taking narcotic pain medications. Stool softeners are only effective if you drink enough fluids. Drink 6-8 glass of water or fluids a day, unless this is not allowed for another health problem. Despite using stool softeners, if you haven't had a bowel movement in 3 days, please switch to a gentle laxative. Gentle laxatives are sold over the counter. You should have a bowel movement within 24 hours, if not call the office. You will be discharged from the hospital with a prescription for pain medication. You are encouraged to decrease the use of narcotic pain medication as tolerated. Should you require a refill, please call the office. [facility] prescribes narcotic pain medication for only 4-6 weeks after surgery. If you require pain medication beyond this time period, you may be referred to your Primary Care Physician or to the Pain Clinic for further evaluation. Plan ahead for refills on pain medication as many narcotics either need to be picked up at the office or mailed. It is best to call 48-72 hours in advance of needing a prescription refill so you don't run out of medication. To help control the post-operative pain, you may take NSAIDs (Aleve,Advil, Motrin, ibuprofen, naprosyn) or Tylenol as prescribed on the bottle in addition to the pain medication. ANTICOAGULATION (blood thinners): Continue your Aspirin, Lovenox or Coumadin as prescribed to help prevent a blood clot in the leg or in the lungs. As long as your incision remains dry and you tolerate the NSAIDs (Aleve, Advil, Motrin, Ibuprofen, Naprosyn), it is OK to use the NSAIDS while you are taking your anticoagulation medication. Should your incision start to drain, stop the NSAID and contact our office. Common symptoms of blood clot in the legs include: localized pain, swelling, c [facility] tenderness, redness or discoloration of the skin. Blood clot in the lung symptoms include: shortness of breath, rapid pulse, sweating, and chest pain that worsens with deep breathing, coughing up blood, lightheadedness, feelings of anxiety. If you experience any of these symptoms notify your physician immediately, go to the emergency room, or if having trouble breathing, call 911. WOUND CARE: Leave the dressing on for 7 to 10days. You may change the dressing if it is saturated greater than 50%. Do not get the dressing wet at anytime. Wash your hands with antibacterial soap, rinse and dry prior to any wound care. If you have phoebe the visiting nurse or rehab facility can remove the stapes 10-14 days after surgery and place steri-strips across the wound. Leave the steri-strips in place until they fall off on their own. You may let water from the shower run on top of the steri-strips. If you do not have a visiting nurse or rehab facility, you will need to return to the office at 10-14 days for the phoebe to be removed. If you have itching or redness around the dressing call the office. FOLLOW-UP: Please follow up with your surgeon in the orthopedic clinic in 6 weeks from the day of surgery. If you have phoebe that need to be removed, you will need to come back to the office in 10-14 days from the day of surgery. Patient to f/u with ID 03/04/2019 and ortho 1 week after discharge Referrals: Genet Gibbons PAC [Physician Tetryl Boiling Tub Operator] - Nicolette Landrum PROJECT PORTFOLIO ANALYST [Advanced Practice Nurse] - 03/04/19 2:00 pm Prescriptions: ceFAZolin [Ancef] 2,000 mg IVPB Q12HR #168 vial Prescription Printed
--- NOTE | 2019-02-19 09:50 | Discharge Summary ---
- NOTES TO OUTPATIENT PROVIDER Notes to Outpatient Provider: patient to continue cefazolin 2g IV q8hrs for 6 weeks Orders not resulted at time of discharge: Pending orders 02/14/19 20:50 Culture,Anaerobic [RM] Stat 02/15/19 19:34 Culture,Anaerobic [RM] Routine Date of Encounter: 02/19/19 Time of Encounter: 09:41 - Discharge Diagnosis (1) Abscess of right hip Priority: Primary Status: Acute (2) DMII (diabetes mellitus, type 2) Priority: Secondary Status: Chronic Qualifiers: Diabetes mellitus manager long term care insulin use: without senior care use Diabetes mellitus complication status: without complication Qualified Code(s): E11.9 - Type 2 diabetes mellitus without complications (3) NASEEM (acute kidney injury) Priority: Secondary Status: Acute (4) History of right hip replacement Priority: Secondary Status: Acute Hospital course: Ms. Cartagena is a 83 year old female with a history of right hip replacement with multiple right hip abscess. Patient presented with new abscess of right hip. Ortho performed I&D and washout. Patient was placed on IV antibiotics. ID was consulted. Cultures grew MSAS. ID recommends 6 weeks of IV cefazolin. Patient is being discharged to [facility] for senior care IV abx. Midline was placed prior to discharge. Patient was clinically stable on day of discharge. Discharge discussed with: patient - Time Spent with Patient Total time spent providing and/or coordinating discharge services: 40 - Discharge Medications Prescriptions: New ceFAZolin [Ancef] 2,000 mg IVPB Q12HR #168 vial Continued Clopidogrel [Plavix] 75 mg PO DAILY Lisinopril [Zestril] 20 mg PO BID metFORMIN [Glucophage] 500 mg PO DAILY Rosuvastatin [Crestor] 20 mg PO HS Discontinued Sulfamethoxazole/Trimeth DS [Bactrim Ds] 1 tab PO DAILY Home Medications: Clopidogrel [Plavix] 75 mg PO DAILY 09/15/17 [History] Lisinopril [Zestril] 20 mg PO BID 09/15/17 [History] Rosuvastatin [Crestor] 20 mg PO HS 09/15/17 [History] metFORMIN [Glucophage] 500 mg PO DAILY 09/15/17 [History] ceFAZolin [Ancef] 2,000 mg IVPB Q12HR #168 vial 02/19/19 [Rx] Allergies/Adverse Reactions: Allergy/AdvReac Type Severity Reaction Status Date / Time No Known Allergies Allergy Verified 02/15/19 13:36 Date of admission: 02/14/19 17:07 Primary care physician: Ruiz Weiss DO Consults: 02/14/19 16:31 Consult to Orthopedic Surgery [CONS] Stat Consulting Provider: [facility] Reason for Consult: right hip abscess Time Notified: 16:32 Call Completed: Yes 02/15/19 20:48 Consult to Nurse Navigator [CONS] Routine Comment: ortho navigator Consult to Nutrition [CONS] Routine Comment: Consulting Provider: NUTRITION Reason for Dietary Consult: Other Other:: Proper nutrition to facilitate wound healing Consult to Occupational Therapy [CONS] Routine Comment: Evaluate, develop and implement POC Reason for Consult: total hip replacement Does patient have active BEDREST order?: No Is patient medically & hemodynamically stable?: Yes Consult to Physical Therapy [CONS] Routine Comment: Evaluate, develop and implement POC Reason for Consult: total hip replacement Does patient have active BEDREST order?: No Is patient medically & hemodynamically stable?: Yes Consult to Director Strategic Account Management [CONS] Routine Reason for SW Consult: post op joint replacement RT Post Op Consult [CONS] Routine 02/18/19 08:04 Consult to Infectious Diseases [CONS] Routine Consulting Provider: Infectious Disease [facility] Reason for Consult: Patient presenting with abscess of right hip with previous right hip replacement. S/p I&D and washout per surgery. Multiple abscesses in the past. Cultures pending. Consult for recommendations with regards to antibiotic course. Thank you. Call Completed: Yes 02/18/19 12:39 Consult to Pastoral Services [CONS] Routine Comment: 02/18/19 16:22 Midline [Consult to Invasive Line Access Team] [CONS] Routine Reason for Consult: IV atbs Line Type: Midline Discharging clinician: Allen Moser Anticipated date of discharge: 02/19/19 - Constitutional Vitals: Temp Pulse Resp BP Pulse Ox 97.8 F 67 16 139/80 98 02/19/19 06:33 02/19/19 06:33 02/19/19 06:33 02/19/19 06:33 02/19/19 06:33 General appearance: Present: A&O X 3, no acute distress, answers questions appropriately Exam: General: Ill-appearing and in no acute distress HEENT: No erythema of posterior pharynx. No exudates. Lymphatics: No mandibular or cervical lymphadenopathy Cardiovascular: RRR. No murmurs. No chest wall tenderness. Lungs: Clear to auscelltation bilaterally. Regular chest rise. Abdomen: Non-tender. No rebound or gaurding. Nl bowel sounds. Extremities: No edema. 2+ pulses radial and pedal pulses Skin: R hip with bandage in place over draining abscess. Tender but no notable erythema Psych: Nl attention. A&Ox3 Neuro: licensed practical nurse II-XII intact. 5/5 strength. Sensation to light touch and pinprick intact. - Patient Status Disposition: Transfer SNF Condition: Good Functional capacity at discharge: independent ambulation Overall status at discharge: patient is back to baseline - Discharge Instructions Follow Up With: Nicolette Landrum CNP [Advanced Practice Nurse] - 03/04/19 2:00 pm Ruiz Weiss DO [Primary Care Provider] - Additional Instructions: Patient to f/u with ID 03/04/2019 and ortho 1 week after discharge - Diet and Activity Activity: resume usual activities as tolerated Diet: advance to your usual diet - VTE Documentation of Mechanical Device: Venous foot pump, device
--- NOTE | 2019-02-19 10:21 | Physician Discharge Referral ---
ExtendedCare Referral Info Provider in Charge after Transfer: Other (transfer to [facility] for intermediate card tender IV antibiotics) - Diagnosis (1) Abscess of right hip Priority: Primary Status: Acute (2) DMII (diabetes mellitus, type 2) Priority: Secondary Status: Chronic (3) NASEEM (acute kidney injury) Priority: Secondary Status: Acute (4) History of right hip replacement Priority: Secondary Status: Acute Prognosis: Good - Transfer Medications Prescriptions: ceFAZolin [Ancef] 2,000 mg IVPB Q12HR #168 vial Home Medications: Clopidogrel [Plavix] 75 mg PO DAILY 09/15/17 [History] Lisinopril [Zestril] 20 mg PO BID 09/15/17 [History] Rosuvastatin [Crestor] 20 mg PO HS 09/15/17 [History] metFORMIN [Glucophage] 500 mg PO DAILY 09/15/17 [History] ceFAZolin [Ancef] 2,000 mg IVPB Q12HR #168 vial 02/19/19 [Rx] Allergies/Adverse Reactions: Allergy/AdvReac Type Severity Reaction Status Date / Time No Known Allergies Allergy Verified 02/15/19 13:36 - Respiratory Orders Smoking Cessation: Smoking cessation has been advised. For more information, call the [place] Tobacco Quit Line at 0-988-XYZR-NOW. - Rehabiliation Orders Rehab Potential: Good - Treatments May check for fecal impaction rectally daily PRN - Diet Orders Regular CERTIFICATION: I certify that the transfer of the above named patient to an Extended Care Facility is necessary for the continuing treatment of the diagnosis listed. The above information is true and accurate reflection of patient's current condition. Confidential - Redisclosure prohibited without a patient's written consent.
--- NOTE | 2019-02-19 11:31 | Infectious Disease Progress No ---
ID Progress Note Date of Encounter: 02/19/19 Time of Encounter: 11:29 - Subjective Subjective: Patient seen and examined. No acute events noted overnight. Patient states overall she feels well. She denies fevers, chills, rigors. Denies chest pain, shortness of breath, or cough. Denies nausea, vomiting, diarrhea, or constipation. Denies abdominal pain or urinary complaints. Reports minimal pain at the surgical site. Denies any oral thrush. Complains of erythematous itchy rash to the right knee. - Objective CBC & Chem 7: 02/18/19 03:30 02/17/19 04:15 - Exam Vitals: Temp Pulse Resp BP Pulse Ox 97.8 F 67 16 139/80 98 02/19/19 06:33 02/19/19 06:33 02/19/19 06:33 02/19/19 06:33 02/19/19 06:33 Exam: Head: Atraumatic, normal inspection, normocephalic. Eye: EOMI, PERRLA, no scleral icterus noted. ENT: Mucous membranes moist. No odontogenic infection noted. Neck: Normal inspection, no meningismus. Respiratory: Clear to auscultation. No rales, respiratory distress, rhonchi, or wheezes noted. Cardiovascular: Regular rate and rhythm, S1 and S2 audible. No murmurs, rubs, or gallops. GI: Soft, nondistended, normal bowel sounds. Nontender. Extremities:No joint swelling, pedal edema, or tenderness noted. Right hip surgical site dressing clean, dry, and intact. No surrounding erythema. Mild tenderness noted with palpation. Back: Normal inspection. No vertebral tenderness noted. Neurological: Alert, oriented 3, no focal deficits. Psychiatric: normal affect, normal mood. Skin: Dry, intact, warm. Normal color. Flat erythematous rash noted to the anterior aspect of the knee. No open lesion or drainage noted. - Assessment and Plan (1) Infection of prosthetic total hip joint Current Visit: No Status: Acute Location: Right hip. Causative organism: MSSA. Etiology: Unclear. Seating of the hardware versus nonhealing surgical site. CT of the right hip 02/14/19 showed a fluid collection to the lateral and posterior intertrochanteric aspect of the right femur concerning for abscess versus hematoma. Orthopedics consulted. Status post I&D of the right hip 02/15/19. Intraoperative cultures as above. Currently on IV Vanco and cefazolin. Qualifiers: Encounter type: subsequent encounter Qualified Code(s): T84.59XD - Infection and inflammatory reaction due to other internal joint prosthesis, subsequent encounter; Z96.649 - Presence of unspecified artificial hip joint SNOMED Code(s): 120938661 (2) NASEEM (acute kidney injury) Current Visit: Yes Status: Resolved Serum creatinine elevated at 1.32 on admission. Etiology: Unclear. Improved. Continue to trend. This adjusting antibiotics and avoid nephrotoxins as able. SNOMED Code(s): 99502606, 92208625 (3) History of right hip replacement Current Visit: Yes Status: Acute Status post right total hip replacement [address] Thomson. SNOMED Code(s): 675339019, 484807628 (4) Status post revision of total hip replacement Current Visit: No Status: Acute Status post revision femur right total hip arthroplasty I&D 03/02/[address] Sousa. Intraoperative cultures were positive for MSSA 2 strains. Treated with six weeks of IV antibiotics (Vanc followed by cefazolin) with 3 months of PO Keflex. SNOMED Code(s): 816675325, 428101666, 289188291, 385438279 (5) DMII (diabetes mellitus, type 2) Current Visit: Yes Status: Chronic Recommend aggressive glucose monitoring to promote wound healing and prevent re- infection Management per the primary team. Qualifiers: Diabetes mellitus halfway insulin use: without halfway use Diabetes mellitus complication status: without complication Qualified Code(s): E11.9 - Type 2 diabetes mellitus without complications SNOMED Code(s): 19443756 (6) HTN (hypertension) Current Visit: No Status: Chronic Qualifiers: Hypertension type: essential hypertension Qualified Code(s): I10 - Essential (primary) hypertension SNOMED Code(s): 27997229 (7) History of CVA (cerebrovascular accident) Current Visit: No Status: Chronic SNOMED Code(s): 793984292 (8) Hyperlipidemia Current Visit: Yes Status: Acute Qualifiers: Hyperlipidemia type: unspecified Qualified Code(s): E78.5 - Hyperlipidemia, unspecified SNOMED Code(s): 51287207 - Recommendations Recommendations: Post-op care per the orthopedics team. Continue cefazolin 2 grams IV Q8H. Discontinue vancomycin. Duration of treatment depends on the clinical picture, but likely at least 6 wee ks of IV antibiotics followed by orals. May consider chronic oral suppressive therapy. Will need weekly CBC, BUN/Cr, ESR, CRP. Will need weekly IV care per protocol. Follow up with ID 03/04/19 at 1400. - VTE Documentation of Mechanical Device: Venous foot pump, device Consult Discharge Plan - Plan Additional Instructions: Patient to f/u with ID 03/04/2019 and ortho 1 week after discharge Referrals: Nicolette Landrum CNP [Advanced Practice Nurse] - 03/04/19 2:00 pm Ruiz Weiss DO [Primary Care Provider] - Prescriptions: ceFAZolin [Ancef] 2,000 mg IVPB Q12HR #168 vial
[2019-02-19] MEDS ORDERED: Aminoglycoside Consult 1 EACH MC ONE (12:44)
== END 2019-02-19 12:45 | DRG 580 ==
LOC: 3NENU 12:38 → EMEROOARM 12:38 → SUATTDRO 17:07 → 3NENU 18:18
PROVIDERS: ADMIT Student in an Organized Health Care Education/Training Program; ATTEND Family Medicine